=== PATIENT | female | born 1970 | race Caucasian/White ===

== ENCOUNTER → 2018-06-11 12:53 | Outpatient (CLI) | payer OTHER, MEDICAID, SELFPAY ==
--- NOTE | 2018-06-11 | DI.MG.S_ITS ---
BILATERAL DIGITAL DIAGNOSTIC MAMMOGRAM 3D/2D: 06/11/2018 CLINICAL: Baseline exam. Left breast and axillary palpable masses with pain. No prior exams were available for comparison. There are scattered fibroglandular elements in both breasts. There is a triangular marker overlying the skin of the upper outer left breast at anterior depth at the site of the patient's reported palpable and painful abnormality. There is no underlying mammographic abnormality. There are also no suspicious masses or abnormalities in the left axillary region on diagnostic mammography, at the site of the patient's second palpable, painful concern. No significant masses, calcifications, or other findings are seen in either breast. IMPRESSION: INCOMPLETE: NEEDS ADDITIONAL IMAGING EVALUATION No mammographic abnormalities to correlate with the site of the patient's reported focal palpable and painful abnormalities of the left axilla and upper outer left breast. Targeted diagnostic ultrasound recommended for further evaluation, which will be performed immediately following this exam. This exam was interpreted at Station ID: [id number]. NOTE: For mammograms, a report in lay terms will be sent to the patient. Approximately 15% of breast malignancies will not be visualized mammographically. In the management of a palpable breast mass, a negative mammogram must not discourage biopsy of a clinically suspicious lesion. Electronically Signed By: James Nieves M.D. ecl/:06/12/2018 00:33:33 letter sent: Additional Imaging Needed ACR BI-RADS Category 0: Incomplete 3340F
--- NOTE | 2018-06-11 | DI.US.S_ITS ---
ULTRASOUND OF LEFT BREAST: 06/11/2018 CLINICAL: Palpable left breast lump. Comparison is made to exam dated: 06/11/2018 mammogram - [facility]. Real-time and Doppler ultrasound of the left breast were performed. Trevino scale images of the real-time examination were reviewed. Targeted ultrasound was performed in the region of the patient's reported focal painful and palpable abnormalities in the upper outer left breast and left axilla. No underlying breast mass or abnormality is identified in the upper outer left breast location as indicated by the patient (approximately at the 2:00 position 8 cm from the nipple). Targeted ultrasound of the left axilla demonstrates a 1.7 x 1.4 x 1.3 cm oval circumscribed mass most consistent with a lymph node with diffuse cortical thickening and effacement of the fatty hilum. There is no vascularity in the mass on Doppler imaging. IMPRESSION: SUSPICIOUS OF MALIGNANCY - FOLLOW-UP RECOMMENDED 1) 1.7 cm mass in the left axilla at site of patient's palpable painful concern; this mass may represent an abnormal lymph node, is at intermediate suspicion for malignancy, and a targetd ultrasound biopsy is recommended. 2) Negative ultrasound evaluation of the area of the patient's reported focal painful abnormality in the upper outer left breast. Recommend clinical follow-up for further evaluation and management of the patient's reported symptoms. These results and recommendations were discussed with the patient at the time of the exam by [facility] radiologist Dr. Quoc Dumont in person. This exam was interpreted at Station ID: [id number]. Electronically Signed By: James Nieves M.D. ecl/:06/12/2018 00:38:38 letter sent: Biopsy Required Ultrasound BI-RADS: 4b Suspicious abnormality - intermediate suspicion of malignancy
== END ==
PROVIDERS: PCP Physician Assistant Medical; Visit Provider Internal Medicine Medical Oncology
DX: R92.8 Other abnormal and inconclusive findings on diagnostic imaging of breast (principal); N64.4 Mastodynia; N63.21 Unspecified lump in the left breast, upper outer quadrant; N63.32 Unspecified lump in axillary tail of the left breast
CPT/HCPCS: 76642; 77066; G0279

== ENCOUNTER → 2018-07-01 13:10 | Outpatient (CLI) | payer OTHER, MEDICAID, SELFPAY ==
--- NOTE | 2018-07-01 | DI.US.S_ITS ---
ULTRASOUND GUIDED BIOPSY LEFT BREAST WITH MARKING DEVICE INSERTED: 07/01/2018 CLINICAL: Left axillary node biopsy. PATIENT CONSENT: Risks (minor bleeding, infection, vasovagal reaction and repeat procedure), benefits and alternatives were explained to the patient and written informed consent was obtained. Correlation is made to exams dated: 06/11/2018 ultrasound and 06/11/2018 mammogram [facility]. An ultrasound guided biopsy using real-time ultrasound was performed for the oval lymph node located in the left axillary tail. The skin was prepped in the usual manner. Local anesthetic was administered to the access site. A skin steffanie was made in the breast. The abnormality was approached from the lateral aspect. An 18 gauge biopsy needle was placed adjacent to the abnormality under ultrasound guidance. Once the needle was documented to be in the correct location, four specimens were obtained using an automated biopsy gun. A clip was inserted into the biopsy cavity. Post procedure imaging demonstrates the location device at the targeted area. The specimens were sent to the laboratory for pathological analysis. IMPRESSION: ULTRASOUND GUIDED BIOPSY BENIGN Ultrasound guided biopsy of the lymph node in the left axillary tail was successful. Pathology indicates benign lymph node (LN). Pathology results are concordant with imaging findings. Return to annual mammogram screening schedule is recommended.(07/02/2019) This exam was interpreted at Station ID: [id number]. Danny salter,jan/:07/10/2018 09:13:21
--- NOTE | 2018-07-01 21:53 | PATH_ITS ---
[id number] Control ID: [id number] [facility] PATHOLOGY ONLY [address] [facility] [address] Patient Details KAREN CHAIDEZ DOB: 1970 Age(y/m/d): Gender: F SSN: Specimen Details Date collected: 07/01/20182152 Local Date received: 07/01/2018 Date entered: 07/01/2018 Date reported: 07/09/2018 1305 ET Physician Details Ordering: Harley ZIMMER Referring: ID: NPI: Additional Information: Clinical Info: [id number] Tests Ordered: Pathology Report Clinician Provided ICD Code(s) & Clinical History: Material Submitted: () LEFT AXILLARY LYMPH NODE Diagnosis: (01) Left Axillary Lymph Node, Biopsy: Minute fragments of lymphoid tissue without diagnostic abnormalities. Negative for granulomatous inflammation. Negative for carcinoma or lymphoproliferative disorder, see microscopic description. V/07/07/2018 Pathologist Provided ICD Code(s): (01) R59.0 CPT Codes: (01) 648112, Y95891, R92420 Microscopic Description: (01) Microscopic examination of the biopsy reveals small fragments of lymphoid tissue without morphologic evidence for metastatic carcinoma or lymphoma. In addition, there is no evidence for granulomatous inflammation. A panel of immunostains is performed for further evaluation, with the following findings: CD3 and CD20 show normal distribution of T and B lymphocytes, respectively. CD5 and CD43 label T lymphocytes (without aberrant B-cell coexpression). Cyclin-D1 shows no expression on the B lymphocytes. BCL2 labels T lymphocytes. BCL6 shows rare B-lymphocyte positivity, and the proliferation marker Ki-67 is very low. CANDICE ( panepithelial marker) is negative for metastatic carcinoma. On this very limited sample, there is no malignancy; however, if clinically there is suspicion for carcinoma, an excision is advised, and if there is suspicion for lymphoma, excision and fresh tissue for flow cytometry studies (in RPMI media) is recommended. * This test was developed and its performance characteristics determined by [employer]. It has not been cleared or approved by the U.S. Food and Drug Administration. The FDA has determined that such clearance or approval is not necessary. This test is used for clinical purposes. It should not be regarded as investigational or for research. Gross Description: (01) Received in one formalin-filled container labeled with the patient's name and designated left axillary lymph node, are multiple 0.1 cm in diameter, cylindrical-shaped portions of tissue which range in length from 0.1 cm to 1.0 cm. The specimen is entirely submitted in one cassette. ([id number]) /FRR Comments: (01) As part of ongoing quality process auditor, this case has also been reviewed by Dr. Jania Nguyen, who concurs with the diagnosis. ACC: [id number] PID: [id number] A duplicate report has been generated due to demographic updates. Electronically signed by () Megan Dunlap MD, Pathologist NPI- [id number]
== END ==
PROVIDERS: PCP Physician Assistant Medical; Visit Provider Internal Medicine Medical Oncology
DX: R22.2 Localized swelling, mass and lump, trunk (principal)
CPT/HCPCS: 38505; 76942; 88305; 88341; 88342

== ENCOUNTER → 2019-06-16 09:53 | Outpatient (CLI) | payer OTHER, MEDICAID, SELFPAY ==
--- NOTE | 2019-06-16 | DI.MG.S_ITS ---
BILATERAL DIGITAL SCREENING MAMMOGRAM 3D/2D WITH CAD: 06/16/2019 CLINICAL: Routine screening. Family history of breast cancer. Comparison is made to exam dated: 06/11/2018 mammogram - [facility]. The tissue of both breasts is predominantly fatty. Current study was also evaluated with a Computer Aided Detection (CAD) system. There is a biopsy clip in the left breast. No significant masses, calcifications, or other findings are seen in either breast. There has been no significant interval change. IMPRESSION: NEGATIVE There is no mammographic evidence of malignancy. A 1 year screening mammogram is recommended. This exam was interpreted at Station ID: [id number]. NOTE: For mammograms, a report in lay terms will be sent to the patient. Approximately 15% of breast malignancies will not be visualized mammographically. In the management of a palpable breast mass, a negative mammogram must not discourage biopsy of a clinically suspicious lesion. Electronically Signed By: Meliton singh/mata:06/16/2019 20:34:04 letter sent: Normal Exam ACR BI-RADS Category 1: Negative 3341F
== END ==
PROVIDERS: PCP Physician Assistant Medical; Visit Provider Nurse Practitioner Family
DX: Z12.31 Encounter for screening mammogram for malignant neoplasm of breast (principal); Z80.3 Family history of malignant neoplasm of breast
CPT/HCPCS: 77063; 77067

== ENCOUNTER → 2020-06-29 13:22 | Outpatient (CLI) | payer OTHER, MEDICAID, SELFPAY ==
--- NOTE | 2020-06-29 | DI.MG.S_ITS ---
BILATERAL DIGITAL SCREENING MAMMOGRAM 3D/2D WITH CAD: 06/29/2020 CLINICAL: Routine screening. Family history of breast cancer. Comparison is made to exams dated: 06/16/2019 mammogram and 06/11/2018 mammogram - [facility]. There are scattered fibroglandular elements in both breasts. Current study was also evaluated with a Computer Aided Detection (CAD) system. There is a biopsy clip in the left breast. No significant masses, calcifications, or other findings are seen in either breast. There has been no significant interval change. IMPRESSION: NEGATIVE There is no mammographic evidence of malignancy. A 1 year screening mammogram is recommended. This exam was interpreted at Station ID: [id number]. NOTE: For mammograms, a report in lay terms will be sent to the patient. Approximately 15% of breast malignancies will not be visualized mammographically. In the management of a palpable breast mass, a negative mammogram must not discourage biopsy of a clinically suspicious lesion. Electronically Signed By: Brant wilde/mata:06/29/2020 17:30:13 letter sent: Normal Exam ACR BI-RADS Category 1: Negative 3341F
== END ==
PROVIDERS: PCP Physician Assistant; Referring Provider Physician Assistant; Visit Provider Physician Assistant
DX: Z12.31 Encounter for screening mammogram for malignant neoplasm of breast (principal); Z80.3 Family history of malignant neoplasm of breast
CPT/HCPCS: 77063; 77067

== ENCOUNTER → 2021-07-11 14:51 | Outpatient (CLI) | payer OTHER, MEDICAID, SELFPAY ==
--- NOTE | 2021-07-11 | DI.MG.S_ITS ---
BILATERAL DIGITAL SCREENING MAMMOGRAM 3D/2D WITH CAD: 07/11/2021 CLINICAL: Routine screening. Family history of breast cancer. Comparison is made to exams dated: 06/29/2020 mammogram, 06/16/2019 mammogram, and 07/01/2018 ultrasound [facility]. There are scattered fibroglandular elements in both breasts. Current study was also evaluated with a Computer Aided Detection (CAD) system. There are benign calcifications in both breasts. No significant masses, calcifications, or other findings are seen in either breast. There has been no significant interval change. IMPRESSION: BENIGN There is no mammographic evidence of malignancy. A 1 year screening mammogram is recommended. This exam was interpreted at Station ID: [id number]. NOTE: For mammograms, a report in lay terms will be sent to the patient. Approximately 15% of breast malignancies will not be visualized mammographically. In the management of a palpable breast mass, a negative mammogram must not discourage biopsy of a clinically suspicious lesion. Electronically Signed By: Maximilian Arevalo acr/mata:07/11/2021 15:26:34 letter sent: Normal Exam ACR BI-RADS Category 2: Benign Finding(s) 3342F
== END ==
PROVIDERS: PCP Family Medicine; Referring Provider Family Medicine; Visit Provider Family Medicine
DX: Z12.31 Encounter for screening mammogram for malignant neoplasm of breast (principal)
CPT/HCPCS: 77063; 77067

== ENCOUNTER 2021-10-22 15:48 | Emergency (ER) | payer OTHER, MEDICAID, SELFPAY ==
[2021-10-22 15:55] VITALS: BP 167/83; PULSE 81; RESP 22; TEMP 36.5; O2SAT 97
--- NOTE | 2021-10-22 17:47 | DI.RAD.S_ITS ---
PROCEDURE: XR CHEST 2V INDICATIONS: cough, fatigue x 2 weeks TECHNIQUE: 2 views of the chest were acquired. COMPARISON: None. FINDINGS: Surgical changes and devices: None. Lungs and pleura: Lungs are clear. No pleural effusions or pneumothorax. Mediastinum: Mediastinal contours are normal. Heart size is normal. Bones and chest wall: No suspicious bony abnormalities. Soft tissues appear unremarkable. IMPRESSION: No acute cardiopulmonary process demonstrated radiographically. Dictated by: Marcos Brothers M.D. on 10/22/2021 at 17:07 Approved by: Marcos Brothers M.D. on 10/22/2021 at 17:07
[2021-10-22 18:34] LABS: COVID19 -Nasal RAPID Negative (Negative)
--- NOTE | 2021-10-22 18:55 | ED_ITS ---
HPI - General Adult General Chief complaint: Upper Respiratory Symptoms Stated complaint: Cough/Hurts to Breathe/Not Sleeping or Eating Time Seen by Provider: 10/22/21 18:47 Source: patient Mode of arrival: Ambulatory History of Present Illness HPI narrative: Patient is a 50-year-old female here for evaluation of approximately 2 weeks of a cough, some discomfort when she takes a deep breath, not sleeping very well nor eating very well. She states she had symptoms a couple weeks ago things seemed to improve but now has returned. No fevers. She is unvaccinated against COVID-19. Related Data Allergies Allergy/AdvReac Type Severity Reaction Status Date / Time Penicillins Allergy Verified 10/22/21 15:57 Review of Systems Constitutional Constitutional: Reports fatigue and Denies fever(s) ENT Ears, Nose, Mouth, and Throat: Reports system reviewed and no additional complaints, except as documented Cardiovascular Cardiovascular: Reports as per HPI and Reports system reviewed and no additional complaints, except as documented Respiratory Respiratory: Reports as per HPI and Reports system reviewed and no additional complaints, except as documented Gastrointestinal Gastrointestinal: Reports as per HPI and Reports system reviewed and no additional complaints, except as documented Integumentary/Breasts Skin/Breast: Reports system reviewed and no additional complaints, except as documented Endocrine Endocrine: Reports fatigue Hematologic/Lymphatic On Anticoagulants: No Patient History Social History lives independently: Yes Exam Initial Vital Signs Initial Vital Signs: Vital Signs Temperature 97.7 F 10/22/21 15:55 Pulse Rate 81 10/22/21 15:55 Respiratory Rate 22 10/22/21 15:55 Blood Pressure 167/83 H 10/22/21 15:55 Pulse Oximetry 97 10/22/21 15:55 HENMT Head: normal to inspection and normocephalic Resp Effort & Inspection: normal respiratory effort Auscultation: crackles Cardio Rate: regular rate Rhythm: regular rhythm Skin General: no rashes or lesions noted Neuro General: patient alert, patient awake, patient oriented x3 and moves all extremities Extrem General: normal to inspection and capillary refill normal Psych Appearance: grossly normal and well kempt Course Orders Ordered: ED Orders 10/22/21 17:47 XR chest 2V Stat 10/22/21 18:15 COVID19 -Nasal swab/Pre-Proc Stat Vital Signs Vital signs: Vital Signs - 8 hr 10/22/21 15:55 Temperature 97.7 F Pulse Rate 81 Respiratory Rate 22 Blood Pressure 167/83 H Pulse Oximetry 97 Medical Decision Making Lab Data Labs: Lab Results 10/22/21 Range/Units 18:15 SARS-CoV-2 (PCR) Negative (Negative) Imaging Data Chest x-ray: Radiologist's Impression: [address] [address] XRay Report Signed Patient: Kika Chavez MR#: [id number] : 1970 Acct:[id number] Age/Sex: 50 / F Date of Service: 10/22/21 Loc: ED Accession Number: [id number] ?? Procedure: XR chest 2V Ordering Provider: Bere Sorto D.O. PROCEDURE:? XR CHEST 2V ? INDICATIONS:? cough, fatigue x 2 weeks ? TECHNIQUE:? 2 views of the chest were acquired.? ? COMPARISON:? None. ? FINDINGS:? ? Surgical changes and devices:? None.? ? Lungs and pleura:? Lungs are clear.? No pleural effusions or pneumothorax.? ? Mediastinum:? Mediastinal contours are normal.? Heart size is normal.? ? Bones and chest wall:? No suspicious bony abnormalities.? Soft tissues appear unremarkable.? ? IMPRESSION:? No acute cardiopulmonary process demonstrated radiographically. ? ? Dictated by: Marcos Brothers M.D. on 10/22/2021 at 17:07 ? ? Approved by: Marcos Brothers M.D. on 10/22/2021 at 17:07? MDM Narrative Medical decision making narrative: No respiratory distress. No fevers. Chest x-ray is unremarkable. COVID is negative. No indication for antibiotics. I did discuss this with the patient. I do suspect viral upper respiratory infection. She was given return precautions. She expressed understanding and agreement. Discharge Plan Departure Patient Disposition: Home Clinical Impression: Upper respiratory infection, Cough Instructions: Cough Activity Restrictions/Additional Instructions: You can try ruuk-ozi-caswuav cough medications. You can also take Tylenol for any fevers or body aches. Be sure that your washing her hands frequently and wearing a mask. Contact your primary doctor for a follow-up. Return to the emergency department for any new or worsening symptoms. Referrals: Sang Leblanc DO [Primary Care Provider] -
== END 2021-10-22 19:01 | disposition home or self-care (01) ==
PROVIDERS: Emergency Medicine; Emergency Provider Emergency Medicine; PCP Family Medicine
DX: J06.9 Acute upper respiratory infection, unspecified (principal); R05.9 Cough, unspecified; Z20.822 Contact with and (suspected) exposure to COVID-19
CPT/HCPCS: 71046; 87635; 99283; C9803

== ENCOUNTER 2021-11-11 09:24 | Emergency (ER) | payer OTHER, MEDICAID, SELFPAY ==
[2021-11-11] VITALS (8 sets, daily range): BP systolic 137–177; BP diastolic 85–117; PULSE 70–90; RESP 18–40; TEMP 36.7; O2SAT 93–100; BMI 34.7
--- NOTE | 2021-11-11 09:39 | DI.RAD.S_ITS ---
PROCEDURE: XR RIBS LT MIN 3V W CXR1V INDICATIONS: Fall on , left sided rib pain TECHNIQUE: 2 views of the left ribs were acquired, along with a single view chest. COMPARISON: None. FINDINGS: Surgical changes and devices: None. Bones and chest wall: No fractures or dislocations. No suspicious bony lesions. Overlying soft tissues appear unremarkable. Lungs and pleura: No pleural effusions or pneumothorax. Lungs appear clear. Mediastinum: Mediastinal contours appear normal. Heart size is normal. IMPRESSION: No acute cardiopulmonary findings Approved by: Thien Mitchell M.D. on 11/11/2021 at 10:40
--- NOTE | 2021-11-11 09:44 | ED_ITS ---
HPI - Fall General Chief Complaint: Fall Stated Complaint: covid+fell lt. rib pain/hard to breathe Time Seen by Provider: 11/11/21 09:32 Source: patient Mode of arrival: Ambulatory History of Present Illness HPI Narrative: 50-year-old woman with a history of eosinophilic granulomatosis with polyangiitis on immune modulating medications for this, hypertension, diabetes, hyperlipidemia was diagnosed with COVID on November 06 ( unvaccinated) with sore throat nausea, vomiting, diarrhea, mild cough, low-grade fevers, was doing well until she stumbled over her cat and landed with the brunt of the force the left midclavicular line just under her breast. Complaining of severe pain secondary to the fall that is limiting overall breathing. She has been otherwise afebrile with oxygen saturations at 98% on room air. Related Data Previous Rx's Medication Instructions Recorded oxycodone-acetaminophen 5 mg-325 1 tab PO Q6H PRN #20 tab 11/11/21 mg tablet Allergies Allergy/AdvReac Type Severity Reaction Status Date / Time Penicillins Allergy Verified 11/11/21 09:43 Review of Systems Review of Systems Narrative: Remainder of complete review of systems is otherwise unremarkable except for that included in the HPI. Patient History Social History lives independently: Yes Smoking Status: Never smoker Smoking Status: Never smoker Substance Use Type: does not use Exam Initial Vital Signs Initial Vital Signs: Vital Signs Temperature 98.0 F 11/11/21 09:30 Pulse Rate 81 11/11/21 09:30 Respiratory Rate 22 11/11/21 09:30 Blood Pressure 172/111 H 11/11/21 09:30 Pulse Oximetry 98 11/11/21 09:30 General: Chronically ill-appearing in obvious pain as well as emotional distress. Able to give a complete and coherent history. HEENT: Moist mucous membranes, normal sclera with reactive pupils, cushingoid face ease Neck: No JVD, supple Respiratory: Lungs are clear to auscultation, no wheezing no rales no rhonchi. Full and symmetrical air movement Cardiac: Regular rate and rhythm no murmurs no bruits Abdomen: Soft, nontender, good bowel tones, no flank pain Skin: Warm and dry, copper discoloration over multiple extensor surfaces Neurologic: Grossly neurologically intact with no obvious asymmetries or abnormalities Extremities: No trauma, well perfused Psych: Cooperative, appropriate insight and affect Course Orders Ordered: ED Orders 11/11/21 09:39 XR ribs LT min 3V w CXR1V Stat 11/11/21 10:23 Complete Blood Count AUTO DIFF Stat Comprehensive Metabolic Panel Stat D Dimer Stat Troponin I Stat Hydromorphone HCl (Hydromorphone 0.5 Mg Inj) 0.5 mg IV Q15MIN PRN PRN Reason: Pain, Last Admin: 11/11/21 10:35 Dose: 0.5 mg Documented by: YULIYA Discontinued Medications Sodium Chloride (Normal Saline 0.9%) 1,000 mls @ 1,000 mls/hr IV BOLUS ONE Stop: 11/11/21 10:49 Last Admin: 11/11/21 10:35 Dose: 1,000 mls/hr Documented by: YULIYA Ketorolac Tromethamine (Ketorolac 30 Mg/Ml Vial) 15 mg IV NOW ONE Stop: 11/11/21 09:51 Last Admin: 11/11/21 10:34 Dose: 15 mg Documented by: YULIYA Lisinopril (Lisinopril 20 Mg Tablet) 20 mg PO NOW ONE Stop: 11/11/21 09:52 Last Admin: 11/11/21 10:35 Dose: 20 mg Documented by: YULIYA Oxycodone/Acetaminophen (Oxycodone/Acetaminophen 5/325 Tablet) 1 tab PO NOW ONE Stop: 11/11/21 11:13 Last Admin: 11/11/21 11:17 Dose: 1 tab Documented by: YULIYA Vital Signs Vital signs: Vital Signs - 8 hr 11/11/21 09:30 11/11/21 09:36 11/11/21 10:01 Temperature 98.0 F Pulse Rate 81 81 81 Respiratory Rate 22 23 Blood Pressure 172/111 H Pulse Oximetry 98 100 97 11/11/21 10:30 11/11/21 10:42 11/11/21 11:00 Temperature Pulse Rate 78 90 74 Respiratory Rate 40 H 31 H 18 Blood Pressure 177/117 H 137/87 Pulse Oximetry 98 95 93 MDM - Fall Lab Data Result diagrams: 11/11/21 10:23 11/11/21 10:23 Labs: Lab Results 11/11/21 11/11/21 11/11/21 Range/Units 10:23 10:23 10:23 WBC 3.1 L (4.5-11.0) X10^3/uL RBC 4.08 (4.0-5.2) X10^6/uL Hgb 13.3 (12.0-16.0) g/dL Hct 38.2 (36-46) % MCV 93.6 (80-100) fL MCH 32.6 (26-34) PG MCHC 34.8 (30-36) % RDW 14.1 (11.6-14.8) % Plt Count 135 L (150-400) X10^3/uL Neut % (Auto) 47.8 L (50-75) % Lymph % (Auto) 36.0 (25-40) % [place] % (Auto) 13.7 (3-14) % Eos % (Auto) 1.6 L (2-4) % Baso % (Auto) 0.9 (0-2) % Neut # (Auto) 1500 (9550-1244) /uL Lymph # (Auto) 1100 (1452-0174) /uL [place] # (Auto) 400 (0-900) /uL Eos # (Auto) 100 (0-450) /uL Baso # (Auto) 0 (0-100) /uL D-Dimer < 200 (<230) ng/mL Sodium 136 L (137-145) mmol/L Potassium 4.5 (3.4-5.1) mmol/L Chloride 108 H (98-107) mmol/L Carbon Dioxide 23 (22-32) mmol/L BUN 16 (7-17) mg/dL Creatinine 0.70 (0.52-1.04) mg/dL Estimated GFR > 60.0 (>60) mL/min BUN/Creatinine Ratio 22.9 H (6-22) Glucose 207 H (70-100) mg/dL Calcium 9.0 (8.4-10.2) mg/dL Total Bilirubin 0.5 (0.2-1.3) mg/dL AST 32 (14-36) IU/L ALT 30 (<35) IU/L Alkaline Phosphatase 77 (38-126) U/L Troponin I < 0.012 (0.01-0.034) ng/mL Total Protein 6.9 (6.3-8.2) g/dL Albumin 4.1 (3.5-5.0) g/dL Globulin 2.8 (1.7-4.1) g/dL Albumin/Globulin Ratio 1.5 (1.0-2.8) Imaging Data Chest x-ray: Radiologist's Impression: FINDINGS:? ? Surgical changes and devices:? None.? ? Bones and chest wall:? No fractures or dislocations.? No suspicious bony lesions.? Overlying soft tissues appear unremarkable.? ? Lungs and pleura:? No pleural effusions or pneumothorax.? Lungs appear clear.? ? Mediastinum:? Mediastinal contours appear normal.? Heart size is normal.? ? IMPRESSION:? No acute cardiopulmonary findings ? ? ? Approved by: Thien Mitchell M.D. on 11/11/2021 at 10:40? [facility] Narrative Medical decision making narrative: 50-year-old woman with autoimmune disease on day 7 of symptoms with a mechanical fall on day 6 and severe left anterior rib pain. No hemopneumothorax is appreciated. No obvious fracture is seen but the imaging is somewhat suboptimal. Treatment regardless of will fracture or bone bruise is going to be the same with rest and pain control. There is no evidence for acute coronary syndrome, consolidated pneumonia or alternate explanation for her severe rib pain. 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 Given her rib contusion as well will recommend that she not return to work until November 16. Will give her a brief prescription of Percocet to use for rib pain. Remainder of workup today is reassuring and there is no indication for hospitalization at this time. Blood pressure has come down nicely with her typical lisinopril dose and appropriate pain control. She is safe for home discharge Discharge Plan Departure Patient Disposition: Home Clinical Impression: Contusion of rib on left side, COVID-19 Instructions: DI for Rib Contusion, DI for COVID-19 (Suspected or Confirmed ) Activity Restrictions/Additional Instructions: Thank you for coming in today Your lab work was very reassuring. It does look like you are getting over COVID without any significant complications. You did bruise your ribs severely but it does not look like it is completely broken. You certainly did not cause any damage to your lungs or collapse a lung. There is no evidence of heart attack or alternative explanation for your pain. You can use 1-2 Percocet for severe pain. Typically rib injuries are going to take 6 weeks to heal completely. It is important that you continue to take big breaths and remain active. If you find that you are getting worse please return to the emergency department Prescriptions: New oxycodone-acetaminophen 5-325 mg tablet 1 tab PO Q6H PRN (Reason: pain) Qty: 20 0RF Referrals: Sang Leblanc DO [Primary Care Provider] -
[2021-11-11] MEDS: KETOROLAC 30 MG/ML VIAL 15 MG IV (10:34)
[2021-11-11] MEDS: lisinopriL 20 MG TABLET PO (10:35)
[2021-11-11] MEDS: SODIUM CHLORIDE 0.9% 1,000 ML 1000 ML IV (10:35)
[2021-11-11] MEDS: HYDROMORPHONE 0.5 MG INJ IV (10:35)
[2021-11-11 10:41] LABS: Add Manual Diff / Slide Review NO; Basophils Absolute Auto 0 /uL (0-100); Basophils Percent Auto 0.9 % (0-2); Eosinophils Absolute Auto 100 /uL (0-450); Eosinophils Percent Auto 1.6 % (2-4); Hematocrit 38.2 % (36-46); Hemoglobin 13.3 g/dL (12.0-16.0); Lymphocytes Absolute Auto 1100 /uL (1100-4500); Mean Corpuscular HGB Conc 34.8 % (30-36); Mean Corpuscular Hemoglobin 32.6 PG (26-34); Mean Corpuscular Volume 93.6 fL (80-100); Monocytes Absolute Auto 400 /uL (0-900); Monocytes Percent Auto 13.7 % (3-14); Neutrophils Absolute Auto 1500 /uL (1500-7000); Neutrophils Percent Auto 47.8 % (50-75); Platelet Count 135 X10^3/uL (150-400); Red Blood Cell Count 4.08 X10^6/uL (4.0-5.2); Red Cell Distribution Width 14.1 % (11.6-14.8); White Blood Cell Count 3.1 X10^3/uL (4.5-11.0)
[2021-11-11 10:49] LABS: D Dimer < 200 ng/mL (<230)
[2021-11-11 10:50] LABS: Alanine Aminotransferase 30 IU/L (<35); Albumin 4.1 g/dL (3.5-5.0); Albumin Globulin Ratio 1.5 (1.0-2.8); Alkaline Phosphatase 77 U/L (38-126); Aspartate Aminotransferase 32 IU/L (14-36); BUN Creatinine Ratio 22.9 (6-22); Bilirubin Total 0.5 mg/dL (0.2-1.3); Blood Urea Nitrogen 16 mg/dL (7-17); Carbon Dioxide 23 mmol/L (22-32); Chloride 108 mmol/L (98-107); Estimated Glomerular Filt Rate > 60.0 mL/min (>60); Globulin 2.8 g/dL (1.7-4.1); Glucose 207 mg/dL (70-100); HEMOLYSIS < 15 (0-50); Potassium 4.5 mmol/L (3.4-5.1); Sodium 136 mmol/L (137-145); Total Protein 6.9 g/dL (6.3-8.2)
[2021-11-11 11:02] LABS: Troponin I < 0.012 ng/mL (0.01-0.034)
[2021-11-11] MEDS: OXYCODONE/ACETAMINOPHEN 5/325 TABLET 1 TAB PO (11:17)
== END 2021-11-11 12:02 | disposition home or self-care (01) ==
PROVIDERS: Emergency Provider Emergency Medicine; PCP Family Medicine
DX: U07.1 COVID-19 (principal); S20.212A Contusion of left front wall of thorax, initial encounter; W22.8XXA Striking against or struck by other objects, initial encounter
CPT/HCPCS: 36415; 71101; 80053; 84484; 85025; 85379; 96361; 96374; 96375; 99284; J1170; J1885

== ENCOUNTER 2022-04-22 07:33 | Emergency (ER) | payer OTHER, MEDICAID, SELFPAY ==
[2022-04-22 07:35] VITALS: BP 144/84; PULSE 85; RESP 18; TEMP 36.6; O2SAT 99; BMI 33.8
[2022-04-22 08:07] LABS: Add Manual Diff / Slide Review NO; Basophils Absolute Auto 100 /uL (0-100); Basophils Percent Auto 0.7 % (0-2); Eosinophils Absolute Auto 100 /uL (0-450); Eosinophils Percent Auto 0.9 % (2-4); Hematocrit 37.4 % (36-46); Hemoglobin 13.2 g/dL (12.0-16.0); Lymphocytes Absolute Auto 1600 /uL (1100-4500); Lymphocytes Percent Auto 19.3 % (25-40); Mean Corpuscular HGB Conc 35.2 % (30-36); Monocytes Absolute Auto 700 /uL (0-900); Neutrophils Absolute Auto 5700 /uL (1500-7000); Neutrophils Percent Auto 70.1 % (50-75); Platelet Count 179 X10^3/uL (150-400); Red Blood Cell Count 4.11 X10^6/uL (4.0-5.2); Red Cell Distribution Width 14.6 % (11.6-14.8); White Blood Cell Count 8.2 X10^3/uL (4.5-11.0)
[2022-04-22 08:13] LABS: Alanine Aminotransferase 22 IU/L (<35); Albumin 4.8 g/dL (3.5-5.0); Albumin Globulin Ratio 1.6 (1.0-2.8); Alkaline Phosphatase 62 U/L (38-126); Aspartate Aminotransferase 22 IU/L (14-36); BUN Creatinine Ratio 32.4 (6-22); Bilirubin Total 0.9 mg/dL (0.2-1.3); Blood Urea Nitrogen 23 mg/dL (7-17); Calcium 9.3 mg/dL (8.4-10.2); Carbon Dioxide 24 mmol/L (22-32); Chloride 105 mmol/L (98-107); Estimated Glomerular Filt Rate > 60 mL/min (>60); Glucose 168 mg/dL (70-100); HEMOLYSIS < 15 (0-50); Lipase 141 U/L (23-300); Potassium 4.4 mmol/L (3.4-5.1); Sodium 140 mmol/L (137-145); Total Protein 7.8 g/dL (6.3-8.2)
--- NOTE | 2022-04-22 08:22 | ED_ITS ---
HPI - Abdominal Pain General Chief Complaint: Abdominal Pain Stated Complaint: Thinks diverticulitis attack Time Seen by Provider: 04/22/22 07:43 Source: patient and family Mode of arrival: Ambulatory History of Present Illness HPI narrative: Patient is a 51-year-old female history of eosinophilic fasciitis, fibromyalgia and diverticulitis presenting with what she thinks is a diverticulitis flare. It has been ongoing for last 5 days. She said the 1st few days was sort of annoying but now it is quite painful and hurts to move. She has not had fever or chills. It is in 1 particular spot the same spot she always gets diverticulitis. She has not had any bloody stools. She takes tramadol daily for her other issues and is not helping. Related Data Previous Rx's Medication Instructions Recorded oxycodone-acetaminophen 5 mg-325 1 tab PO Q6H PRN pain #20 tabs 11/11/21 mg tablet ciprofloxacin HCl 500 mg tablet 500 mg PO BID #14 tabs 04/22/22 (Cipro) hydrocodone 5 mg-acetaminophen 325 1 tab PO Q6H PRN pain #10 tabs 04/22/22 mg tablet metronidazole 500 mg tablet 500 mg PO Q8H 7 days #21 tabs 04/22/22 ondansetron 4 mg disintegrating 4 mg PO Q8H PRN nausea and 04/22/22 tablet vomiting #10 tabs Allergies Allergy/AdvReac Type Severity Reaction Status Date / Time Penicillins Allergy Verified 11/11/21 09:43 Review of Systems Review of Systems Narrative: GENERAL: Denies chills, fatigue, malaise, fever, sweats, travel HEENT: Denies sinus pain, ear pain, sore throat, difficulty swallowing, neck pain RESPIRATORY: Denies dyspnea, cough, wheezing, hemoptysis, sputum. CARDIOVASCULAR: Denies chest pain, palpitations, orthopnea, edema GASTROINTESTINAL: See HPI : Denies dysuria, frequency, incontinence, hematuria, urinary retention, flank pain. MUSCULOSKELETAL: Denies weakness, joint pain, or bony pain SKIN: No rash, no erythema, no pruritus NEUROLOGIC: Denies weakness, dizziness, headache, numbness, change in speech, confusion PSYCHIATRIC: No concerning psychosocial issues. 12 point review of systems is negative except for those stated above and HPI Patient History Social History lives independently: Yes Smoking Status: Never smoker Smoking Status: Never smoker alcohol intake frequency: 0-2 drinks per day Substance Use Type: does not use Exam Initial Vital Signs Initial Vital Signs: Vital Signs Temperature 97.9 F 04/22/22 07:35 Pulse Rate 85 04/22/22 07:35 Respiratory Rate 18 04/22/22 07:35 Blood Pressure 144/84 H 04/22/22 07:35 Pulse Oximetry 99 04/22/22 07:35 Oxygen Delivery Method 04/22/22 07:35 GENERAL: Alert pleasant 40 appears and in [no acute] distress. HEENT: Head atraumatic,EOMI, pupils reactive, face symmetric, [moist] mucous membranes CARDIOVASCULAR: Regular rate and rhythm without murmurs, rubs or gallops. RESPIRATORY: Breath sounds equal bilaterally, no wheezes rales or rhonchi. ABDOMEN: Soft, tender left lower quadrant over : No CVA tenderness EXTREMITIES: Normal range of motion, no clubbing or edema. Neurovascularly intact NEUROLOGICAL: Alert and oriented x4 SKIN: Warm, dry, no laceration, no petechiae, no rashes or lesions. Course Orders Ordered: Discontinued Medications Morphine Sulfate (Morphine 4 Mg/Ml Inj) 4 mg IV NOW ONE Stop: 04/22/22 08:24 Last Admin: 04/22/22 08:31 Dose: 4 mg Documented By: HEIDY Ondansetron HCl (Ondansetron 4 Mg/2 Ml Inj) 4 mg IV NOW ONE Stop: 04/22/22 08:24 Last Admin: 04/22/22 08:31 Dose: 4 mg Documented By: HEIDY Vital Signs Vital signs: Vital Signs - 8 hr 04/22/22 07:35 Temperature 97.9 F Pulse Rate 85 Respiratory Rate 18 Blood Pressure 144/84 H Pulse Oximetry 99 Oxygen Delivery Method Room Air MDM - Abdominal Pain Lab Data Result diagrams: 04/22/22 07:45 04/22/22 07:45 Labs: Lab Results 04/22/22 04/22/22 04/22/22 Range/Units 07:45 07:45 08:24 WBC 8.2 (4.5-11.0) X10^3/uL RBC 4.11 (4.0-5.2) X10^6/uL Hgb 13.2 (12.0-16.0) g/dL Hct 37.4 (36-46) % MCV 91.0 (80-100) fL MCH 32.0 (26-34) PG MCHC 35.2 (30-36) % RDW 14.6 (11.6-14.8) % Plt Count 179 (150-400) X10^3/uL Neut % (Auto) 70.1 (50-75) % Lymph % (Auto) 19.3 L (25-40) % [place] % (Auto) 9.0 (3-14) % Eos % (Auto) 0.9 L (2-4) % Baso % (Auto) 0.7 (0-2) % Neut # (Auto) 5700 (7396-1466) /uL Lymph # (Auto) 1600 (6707-2661) /uL [place] # (Auto) 700 (0-900) /uL Eos # (Auto) 100 (0-450) /uL Baso # (Auto) 100 (0-100) /uL Sodium 140 (137-145) mmol/L Potassium 4.4 (3.4-5.1) mmol/L Chloride 105 (98-107) mmol/L Carbon Dioxide 24 (22-32) mmol/L BUN 23 H (7-17) mg/dL Creatinine 0.71 (0.52-1.04) mg/dL Estimated GFR > 60 (>60) mL/min BUN/Creatinine Ratio 32.4 H (6-22) Glucose 168 H (70-100) mg/dL Calcium 9.3 (8.4-10.2) mg/dL Total Bilirubin 0.9 (0.2-1.3) mg/dL AST 22 (14-36) IU/L ALT 22 (<35) IU/L Alkaline Phosphatase 62 (38-126) U/L Total Protein 7.8 (6.3-8.2) g/dL Albumin 4.8 (3.5-5.0) g/dL Globulin 3.0 (1.7-4.1) g/dL Albumin/Globulin Ratio 1.6 (1.0-2.8) Lipase 141 (23-300) U/L Urine Color Yellow Urine Appearance Clear Urine pH 5.5 (4.5-8.0) Ur Specific [employer] 1.025 (1.000-1.035) Urine Protein 2+ H (Negative) Urine Glucose (UA) Negative (Negative) g/dL Urine Ketones Negative (NEGATIVE) Urine Occult Blood 1+ H (Negative) Urine Nitrate Negative (Negative) Urine Bilirubin Negative (NEGATIVE) Urine Urobilinogen 0.2 (0.2) E.U./dL Ur Leukocyte Esterase Negative (NEGATIVE) Urine RBC 1-5/hpf (0-5/HPF) Urine WBC None seen (0-5/HPF) Urine Bacteria None seen (None) Hyaline Casts 1-5/lpf (None) Ur Culture Indicated? Cult not indicated Imaging Data CT scan - abdomen/pelvis: Radiologist's Impression: [address] [address] [address] Scan Report Signed Patient: Kika Chavez MR#: [id number] : 1970 Acct:[id number] Age/Sex: 51 / F Date of Service: 04/22/22 Loc: ED Accession Number: [id number] ?? Procedure: CT abdomen pelvis wo con Ordering Provider: Sue Sanabria D.O. PROCEDURE:? CT ABDOMEN PELVIS WO CON ? INDICATIONS:? left lower quad pain hx diverticulitis ? TECHNIQUE:? Noncontrast 5 mm thick sections acquired from the diaphragms to the symphysis.? 5 mm coronal and sagittal reformats were then performed.? For radiation dose reduction, the following was used:? automated exposure control, adjustment of mA and/or kV according to patient size.? ? COMPARISON:? None. ? FINDINGS:? Image quality:? Excellent.? ? ABDOMEN:? Lung bases:? Lung bases are clear.? Heart size is normal.? ? Solid organs:? Liver is diffusely hypodense suggesting fatty infiltration.? Gallbladder is surgically absent .? Pancreas is normal in contours.? Spleen is normal in size.? No adrenal nodules.? Kidneys are normal in size, without hydronephrosis or nephrolithiasis.? ? ? Peritoneum and bowel:? Unenhanced bowel loops demonstrate overall normal wall thickness and caliber.? There are scattered diverticular outpouchings throughout the sigmoid colon. ?Focal mucosal thickening and pericolonic fat stranding is present within the upper sigmoid colon.? No discrete pericolonic fluid collections.? No pneumoperitoneum.? The appendix is thin walled. ? Nodes and vessels:? No retroperitoneal or mesenteric adenopathy by size criteria.? Aorta and inferior vena cava are normal in caliber.? ? Miscellaneous:? No ventral hernias.? ? ? PELVIS:? Genitourinary:? Bladder wall thickness is normal.? ? Miscellaneous:? No inguinal hernias or adenopathy.? ? Bones:? No suspicious bony lesions.? No vertebral body compression fractures.? ? IMPRESSION:? ? 1. Acute non perforated diverticulitis. ? 2. No other acute intra-abdominal findings.? Normal appendix.? ? ? Dictated by: Mily Márquez M.D. on 04/22/2022 at 9:10 ? ? MDM Narrative Medical decision making narrative: Patient has history of diverticulitis. She has signs and symptoms consistent with diverticular with for by CT. Blood work is overall reassuring no significant leukocytosis. She be treated as outpatient with Cipro and Flagyl. Discharge Plan Departure Patient Disposition: Home Clinical Impression: Diverticulitis Instructions: DI for Diverticulitis Activity Restrictions/Additional Instructions: *You have been diagnosed with diverticulitis *What to do: At this time blood work is overall reassuring, recommend clear liquid diet for the 1st few days and then increase diet as tolerated *Continue to take medications as directed Cipro 500 mg twice a day for 7 days Flagyl 500 mg 3 times a day for 7 days *Follow up with your primary care provider in 2-3 days or call [phone] *Return to ER if you should have increased abdominal pain, fever, bloody stool or any new, worsening or concerning symptoms Prescriptions: New hydrocodone-acetaminophen 5-325 mg tablet 1 tab PO Q6H PRN (Reason: pain) Qty: 10 0RF metronidazole 500 mg tablet 500 mg PO Q8H 7 Days Qty: 21 0RF ciprofloxacin HCl [Cipro] 500 mg tablet 500 mg PO BID Qty: 14 0RF ondansetron 4 mg tablet,disintegrating 4 mg PO Q8H PRN (Reason: nausea and vomiting) Qty: 10 0RF No Action oxycodone-acetaminophen 5-325 mg tablet 1 tab PO Q6H PRN (Reason: pain) Qty: 20 0RF Referrals: Sang Leblanc DO [Primary Care Provider] - Visit Report Forms: Patient Portal/API
--- NOTE | 2022-04-22 08:22 | DI.CT.S_ITS ---
PROCEDURE: CT ABDOMEN PELVIS WO CON INDICATIONS: left lower quad pain hx diverticulitis TECHNIQUE: Noncontrast 5 mm thick sections acquired from the diaphragms to the symphysis. 5 mm coronal and sagittal reformats were then performed. For radiation dose reduction, the following was used: automated exposure control, adjustment of mA and/or kV according to patient size. COMPARISON: None. FINDINGS: Image quality: Excellent. ABDOMEN: Lung bases: Lung bases are clear. Heart size is normal. Solid organs: Liver is diffusely hypodense suggesting fatty infiltration. Gallbladder is surgically absent . Pancreas is normal in contours. Spleen is normal in size. No adrenal nodules. Kidneys are normal in size, without hydronephrosis or nephrolithiasis. Peritoneum and bowel: Unenhanced bowel loops demonstrate overall normal wall thickness and caliber. There are scattered diverticular outpouchings throughout the sigmoid colon. Focal mucosal thickening and pericolonic fat stranding is present within the upper sigmoid colon. No discrete pericolonic fluid collections. No pneumoperitoneum. The appendix is thin walled. Nodes and vessels: No retroperitoneal or mesenteric adenopathy by size criteria. Aorta and inferior vena cava are normal in caliber. Miscellaneous: No ventral hernias. PELVIS: Genitourinary: Bladder wall thickness is normal. Miscellaneous: No inguinal hernias or adenopathy. Bones: No suspicious bony lesions. No vertebral body compression fractures. IMPRESSION: 1. Acute non perforated diverticulitis. 2. No other acute intra-abdominal findings. Normal appendix. Dictated by: Mily Márquez M.D. on 04/22/2022 at 9:10 Approved by: Mily Márquez M.D. on 04/22/2022 at 9:12
[2022-04-22 08:26] LABS: Appearance Urine UA CLEAR; Bilirubin Urine UA NEGATIVE (NEGATIVE); Color Urine UA YELLOW; Glucose Urine UA NEGATIVE (Negative); Ketones Urine UA NEGATIVE (NEGATIVE); Leukocyte Esterase Urine UA NEGATIVE (NEGATIVE); Nitrite Urine UA NEGATIVE (Negative); Occult Blood Urine UA 1+ (Negative); Protein Urine UA 2+ (Negative); Specific Gravity Urine UA 1.025 (1.000-1.035); Urobilinogen Urine UA 0.2 E.U./dL (0.2)
[2022-04-22 08:30] LABS: pH Urine UA 5.5 (4.5-8.0)
[2022-04-22 08:31] LABS: RBC Urine 1-5/HPF (0-5/HPF); WBC Urine None Seen (0-5/HPF)
[2022-04-22] MEDS: ONDANSETRON 4 MG/2 ML INJ IV (08:31)
[2022-04-22] MEDS: MORPHINE 4 MG/ML INJ IV (08:31)
[2022-04-22 08:32] LABS: Bacteria Urine None Seen; Culture Indicated Urine Cult Not Indicated; Hyaline Casts Urine 1-5/LPF
[2022-04-22 09:30] VITALS: BP 123/72; PULSE 70; RESP 16; O2SAT 96
== END 2022-04-22 09:31 | disposition home or self-care (01) ==
PROVIDERS: Emergency Provider Emergency Medicine; PCP Family Medicine
DX: K57.92 Diverticulitis of intestine, part unspecified, without perforation or abscess without bleeding (principal)
CPT/HCPCS: 36415; 74176; 80053; 81001; 83690; 85025; 96374; 96375; 99284; J2270; J2405

== ENCOUNTER 2022-09-11 03:30 | Emergency (ER) | payer OTHER, MEDICAID, SELFPAY ==
--- NOTE | 2022-09-11 03:32 | ED.GENADULT ---
HPI - General Adult General Chief complaint: Skin/Abscess/Foreign Body Stated complaint: reaction to shots post surgery Time Seen by Provider: 09/11/22 03:30 History of Present Illness HPI narrative: 51-year-old female nonsmoker without significant chronic medical history presents with family in the chief complaint of concern about a possible reaction to Lovenox shots that she has been receiving in the aftermath of a recent abdominal surgery. She had a partial colectomy performed at [facility] that went quite well and was discharged on Lovenox. She is been administering the shots on the backside of her upper arms and is concerned now that she has some bruising in this location and it feels a bit bumpy. She states that the shots are being administered here because that is where she was given them while in the hospital. She denies any face, tongue or lip swelling, she has no trouble breathing or swallowing. She denies any rash or other. She is not dizzy nor weak or lightheaded. She is had no fever or chills. She denies any significant abdominal pain and states that her incisions seem to be healing appropriately. Related Data Previous Rx's Medication Instructions Recorded oxycodone-acetaminophen 5 mg-325 1 tab PO Q6H PRN pain #20 tabs 11/11/21 mg tablet ciprofloxacin HCl 500 mg tablet 500 mg PO BID #14 tabs 04/22/22 (Cipro) hydrocodone 5 mg-acetaminophen 325 1 tab PO Q6H PRN pain #10 tabs 04/22/22 mg tablet ondansetron 4 mg disintegrating 4 mg PO Q8H PRN nausea and 04/22/22 tablet vomiting #10 tabs Allergies Allergy/AdvReac Type Severity Reaction Status Date / Time Penicillins Allergy Verified 11/11/21 09:43 Review of Systems Review of Systems Narrative: GENERAL: See HPI HEENT: See HPI RESPIRATORY: See HPI CARDIOVASCULAR: See HPI GASTROINTESTINAL: Denies nausea, vomiting, abdominal pain, diarrhea, constipation, melena. : Denies dysuria, frequency, incontinence, hematuria, urinary retention. MUSCULOSKELETAL: denies weakness, joint pain, or bony pain SKIN: See HPI NEUROLOGIC: Denies weakness, headache, numbness, change in speech, confusion, seizures, incoordination. PSYCHIATRIC: No concerning psychosocial issues. 12 point review of systems is negative except for those stated above Patient History Social History lives independently: Yes Smoking Status: Never smoker Smoking Status: Never smoker alcohol intake frequency: 0-2 drinks per day Substance Use Type: does not use Exam Narrative Exam Narrative: GENERAL: [51] year old patient appears stated age. Well-developed patient, in mild distress. Anxious HEAD: Atraumatic. Normocephalic. EYES: Pupils equal round and reactive. Extraocular motions intact. No scleral icterus. No injection or drainage. ENT: No face, tongue, lip or throat swelling, managing secretions and airway without difficulty Nose without bleeding, purulent drainage. Throat without erythema, tonsillar hypertrophy or exudate. Airway patent. NECK: Trachea midline. Non tender CARDIOVASCULAR: Regular rate and rhythm without murmurs, gallops, or rubs. RESPIRATORY: Clear to auscultation. Breath sounds equal bilaterally. No wheezes, rales, or rhonchi. GASTROINTESTINAL: Abdomen soft, slightly tender, incisions are clean, dry and intact, bowel sounds present EXTREMITIES: No edema or joint tenderness. BACK: Nontender without deformity or crepitance. No flank tenderness. NEURO: AOx3. SKIN: Posterior upper arms bilaterally with slightly tender ecchymosis, no wheals Initial Vital Signs Initial Vital Signs: Vital Signs Temperature 98 F 09/11/22 03:50 Pulse Rate 88 09/11/22 03:50 Respiratory Rate 20 09/11/22 03:50 Blood Pressure 130/80 09/11/22 03:50 Pulse Oximetry 99 09/11/22 03:50 Oxygen Delivery Method 09/11/22 03:50 Course Vital Signs Vital signs: Vital Signs - 8 hr 09/11/22 03:50 Temperature 98 F Pulse Rate 88 Respiratory Rate 20 Blood Pressure 130/80 Pulse Oximetry 99 Oxygen Delivery Method Room Air Medical Decision Making MDM Narrative Medical decision making narrative: 51-year-old female without significant chronic medical history presents with her mother for evaluation of painful lumps on her arms. She is been giving herself shots of Lovenox in her bilateral upper arms and has developed what appears to be small hematomas in the region of injection. There is no sign of infection such as increased redness, warmth or circumferential swelling. She has no systemic complaints such as fever, chills nor nausea or vomiting. She has no face, tongue, lip or throat swelling or other elements of allergic reaction. Her history and physical exam are most consistent with small bruises that are very common in the region of Lovenox injections. She is been given reassurance, return precautions have been discussed and questions have been answered to her apparent satisfaction Discharge Plan Departure Patient Disposition: Home Clinical Impression: Feared condition not demonstrated Activity Restrictions/Additional Instructions: *You have been diagnosed with [ no evidence of allergic reaction or severe consequence of medication administration] *What to do: *Please continue to take your regular medications as directed. *Please follow up with your primary care provider in 2-3 days, call for an appointment. Let them know you were seen in the Emergency Department and that we ask that you be seen in follow up. We will electronically transmit a record of today's note if your PCP is in our system *Return to Emergency Department if you should have any new, worsening or concerning symptoms, such as [fever greater than 101 F, shaking chills, worsening pain, persistent vomiting or other bothersome symptoms] Prescriptions: No Action oxycodone-acetaminophen 5-325 mg tablet 1 tab PO Q6H PRN (Reason: pain) Qty: 20 0RF hydrocodone-acetaminophen 5-325 mg tablet 1 tab PO Q6H PRN (Reason: pain) Qty: 10 0RF ciprofloxacin HCl [Cipro] 500 mg tablet 500 mg PO BID Qty: 14 0RF ondansetron 4 mg tablet,disintegrating 4 mg PO Q8H PRN (Reason: nausea and vomiting) Qty: 10 0RF Referrals: Sang Leblanc DO [Primary Care Provider] - Visit Report Forms: Patient Portal/API
[2022-09-11 03:50] VITALS: BP 130/80; PULSE 88; RESP 20; TEMP 36.6; O2SAT 99; BMI 34.7
== END 2022-09-11 04:00 | disposition home or self-care (01) ==
PROVIDERS: Emergency Provider Emergency Medicine; PCP Family Medicine
DX: T78.40XA Allergy, unspecified, initial encounter (principal)
CPT/HCPCS: 99281

== ENCOUNTER 2023-01-15 06:11 | Emergency (ER) | payer OTHER, MEDICAID, SELFPAY ==
[2023-01-15] VITALS (17 sets, daily range): BP systolic 115–161; BP diastolic 65–87; PULSE 58–72; RESP 18; TEMP 36.6; O2SAT 96–98; BMI 36.6
--- NOTE | 2023-01-15 07:02 | PC.NURSE ---
pt states she feels like her lungs are scratching when she takes a deep breath, + productive cough
[2023-01-15 07:13] LABS: Add Manual Diff / Slide Review NO; Basophils Absolute Auto 100 /uL (0-100); Basophils Percent Auto 1.4 % (0-2); Eosinophils Absolute Auto 100 /uL (0-450); Eosinophils Percent Auto 2.4 % (2-4); Hematocrit 36.2 % (36-46); Hemoglobin 12.5 g/dL (12.0-16.0); Lymphocytes Absolute Auto 1600 /uL (1100-4500); Lymphocytes Percent Auto 36.1 % (25-40); Mean Corpuscular HGB Conc 34.6 % (30-36); Mean Corpuscular Hemoglobin 32.9 PG (26-34); Mean Corpuscular Volume 95.2 fL (80-100); Monocytes Absolute Auto 500 /uL (0-900); Monocytes Percent Auto 12.5 % (3-14); Neutrophils Absolute Auto 2100 /uL (1500-7000); Neutrophils Percent Auto 47.6 % (50-75); Platelet Count 163 X10^3/uL (150-400); Red Cell Distribution Width 15.1 % (11.6-14.8); White Blood Cell Count 4.4 X10^3/uL (4.5-11.0)
--- NOTE | 2023-01-15 07:22 | DI.RAD.S_ITS ---
PROCEDURE: XR CHEST 1V INDICATIONS: Cough TECHNIQUE: One view of the chest was acquired. COMPARISON: [facility], CR, XR CHEST 2V, 10/22/2021, 17:41. FINDINGS: Surgical changes and devices: None. Lungs and pleura: Lungs are clear. No pleural effusions or pneumothorax. Mediastinum: Mediastinal contours appear normal. Heart size is normal. Bones and chest wall: No suspicious bony lesions. Overlying soft tissues appear unremarkable. IMPRESSION: No acute cardiopulmonary abnormality. Approved by: Alan Anna M.D. on 01/15/2023 at 8:01
--- NOTE | 2023-01-15 07:25 | ED.NAVMDI ---
HPI - Nausea/Vomiting/Diarrhea General Chief complaint: Nausea/Vomiting/Diarrhea Stated complaint: chest pressure/cough/vomiting Time Seen by Provider: 01/15/23 07:00 Source: patient Mode of arrival: Ambulatory Limitations: no limitations History of Present Illness HPI Narrative: The patient has been ill for 5 days. She initially complained of cough, and congestion. She now has ongoing cough but no dyspnea. The cough is nonproductive. She is no hemoptysis. She is not experiencing chest pain. She is now also experiencing nausea with mild diarrhea. She is not currently vomiting. She is a nonsmoker. She is no chronic respiratory disease. She is status post bowel resection due to diverticulitis. She has no significant abdominal pain with the nausea, vomiting diarrhea at this time. She has no dysuria hematuria. She is no back pain. She is not been exposed to others with similar complaints. Related Data Previous Rx's Medication Instructions Recorded oxycodone-acetaminophen 5 mg-325 1 tab PO Q6H PRN pain #20 tabs 11/11/21 mg tablet ciprofloxacin HCl 500 mg tablet 500 mg PO BID #14 tabs 04/22/22 (Cipro) hydrocodone 5 mg-acetaminophen 325 1 tab PO Q6H PRN pain #10 tabs 04/22/22 mg tablet ondansetron 4 mg disintegrating 4 mg PO Q8H PRN nausea and 04/22/22 tablet vomiting #10 tabs Allergies Allergy/AdvReac Type Severity Reaction Status Date / Time Penicillins Allergy Verified 11/11/21 09:43 Review of Systems Review of Systems ROS Unobtainable: All systems reviewed & are unremarkable except as noted in HPI and below Patient History Medical History (Updated 01/15/23 @ 12:07 by Mendel Whitaker MD) No significant past medical history Social History lives independently: Yes Smoking Status: Never smoker Smoking Status: Never smoker alcohol intake frequency: 0-2 drinks per day Substance Use Type: does not use Exam Initial Vital Signs Initial Vital Signs: Vital Signs Temperature 97.9 F 01/15/23 06:40 Pulse Rate 70 01/15/23 06:40 Respiratory Rate 18 01/15/23 06:40 Blood Pressure 161/87 H 01/15/23 06:40 Pulse Oximetry 97 01/15/23 06:40 Oxygen Delivery Method Room Air 01/15/23 06:40 Const General: cooperative, comfortable, disheveled and other ( she appears physically fatigued) Nutritional Appearance: average body habitus [facility] Head: normocephalic and atraumatic Face and sinus: normal facial exam and sinuses nontender Mouth: oral mucosae normal Throat: posterior oropharynx normal Eyes General: Yes appearance normal, both eyes and all related structures Neck Neck: normal visual inspection and no meningeal signs Resp Effort & Inspection: normal respiratory effort Auscultation: clear to auscultation bilaterally Cardio Palpation: normal PMI Rate: regular rate Rhythm: regular rhythm Heart Sounds: S1 normal and S2 normal GI Inspection: normal to inspection Other: mild epigastric tenderness with palpation. No distension. Bowel sounds are normal. No masses. Back/Spine/Pelvis Back: normal to inspection and No CVA tenderness Skin General: no rashes or lesions noted Neuro General: patient alert, patient awake, patient oriented x3 and no focal motor deficits Extrem General: normal to inspection, full ROM, no pedal edema and no calf tenderness Psych Appearance: grossly normal Course Course Course Narrative: Patient is feeling much better after IV hydration, IV meds given. Her elevated glucose is discussed, she is on medications. Chest x-ray is clear. Evaluation reveals rhino virus. 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 I have given her work note for 3 days off work. Orders Ordered: ED Orders 01/15/23 06:56 Complete Blood Count AUTO DIFF Stat Comprehensive Metabolic Panel Stat Lipase Stat 01/15/23 07:22 Chest [XR chest 1V] Stat 01/15/23 08:02 Respiratory Panel (Film Array) Stat 01/15/23 09:12 Urinalysis and Microscopic Stat Ondansetron HCl (Ondansetron 4 Mg Odt) 4 mg PO NOW PRN PRN Reason: Nausea And Vomiting Ondansetron HCl (Ondansetron 4 Mg/2 Ml Inj) 4 mg IV NOW PRN PRN Reason: Nausea And Vomiting Last Admin: 01/15/23 07:47 Dose: 4 mg Documented By: HEIDY Discontinued Medications Sodium Chloride (Normal Saline 0.9%) 1,000 mls @ 1,000 mls/hr IV BOLUS ONE Stop: 01/15/23 08:21 Last Infusion: 01/15/23 08:23 Dose: 0 mls/hr Documented By: Admin: 01/15/23 07:49 Dose: 1,000 mls/hr Documented By: HEIDY Ketorolac Tromethamine (Ketorolac 30 Mg/Ml Vial) 15 mg IV NOW ONE Stop: 01/15/23 07:23 Last Admin: 01/15/23 07:48 Dose: 15 mg Documented By: HEIDY Vital Signs Vital signs: Vital Signs - 8 hr 01/15/23 06:40 01/15/23 07:57 01/15/23 07:58 Temperature 97.9 F Pulse Rate 70 58 L Respiratory Rate 18 Blood Pressure 161/87 H 117/68 Pulse Oximetry 97 96 Oxygen Delivery Method Room Air 01/15/23 07:58 01/15/23 08:00 01/15/23 08:00 Temperature Pulse Rate 60 61 Respiratory Rate Blood Pressure 119/65 Pulse Oximetry 97 96 Oxygen Delivery Method 01/15/23 08:20 01/15/23 08:20 01/15/23 08:30 Temperature Pulse Rate 59 L 60 Respiratory Rate Blood Pressure 115/65 Pulse Oximetry 97 98 Oxygen Delivery Method 01/15/23 08:40 01/15/23 08:40 01/15/23 09:00 Temperature Pulse Rate 62 Respiratory Rate Blood Pressure 124/74 119/68 Pulse Oximetry 98 Oxygen Delivery Method 01/15/23 09:00 01/15/23 09:24 01/15/23 09:24 Temperature Pulse Rate 64 61 Respiratory Rate Blood Pressure 135/68 Pulse Oximetry 97 97 Oxygen Delivery Method 01/15/23 09:30 01/15/23 09:41 01/15/23 09:41 Temperature Pulse Rate 62 65 Respiratory Rate Blood Pressure 132/79 Pulse Oximetry 97 97 Oxygen Delivery Method 01/15/23 10:00 01/15/23 10:00 01/15/23 10:20 Temperature Pulse Rate 64 Respiratory Rate Blood Pressure 127/78 139/70 Pulse Oximetry 97 Oxygen Delivery Method 01/15/23 10:20 01/15/23 10:30 01/15/23 10:40 Temperature Pulse Rate 72 67 Respiratory Rate Blood Pressure 124/73 Pulse Oximetry 98 97 Oxygen Delivery Method 01/15/23 10:40 01/15/23 11:00 01/15/23 11:00 Temperature Pulse Rate 65 69 Respiratory Rate Blood Pressure 135/78 Pulse Oximetry 97 97 Oxygen Delivery Method MDM - Nausea/Vomiting/Diarrhea Lab Data 01/15/23 06:56 01/15/23 06:56 Labs: Lab Results 01/15/23 01/15/23 01/15/23 Range/Units 06:56 06:56 08:02 WBC 4.4 L (4.5-11.0) X10^3/uL RBC 3.80 L (4.0-5.2) X10^6/uL Hgb 12.5 (12.0-16.0) g/dL Hct 36.2 (36-46) % MCV 95.2 (80-100) fL MCH 32.9 (26-34) PG MCHC 34.6 (30-36) % RDW 15.1 H (11.6-14.8) % Plt Count 163 (150-400) X10^3/uL Neut % (Auto) 47.6 L (50-75) % Lymph % (Auto) 36.1 (25-40) % [place] % (Auto) 12.5 (3-14) % Eos % (Auto) 2.4 (2-4) % Baso % (Auto) 1.4 (0-2) % Neut # (Auto) 2100 (1029-5702) /uL Lymph # (Auto) 1600 (4683-2800) /uL [place] # (Auto) 500 (0-900) /uL Eos # (Auto) 100 (0-450) /uL Baso # (Auto) 100 (0-100) /uL Sodium 139 (137-145) mmol/L Potassium 4.1 (3.4-5.1) mmol/L Chloride 107 (98-107) mmol/L Carbon Dioxide 21 L (22-32) mmol/L BUN 27 H (7-17) mg/dL Creatinine 0.65 (0.52-1.04) mg/dL Estimated GFR > 60 (>60) mL/min BUN/Creatinine Ratio 41.5 H (6-22) Glucose 169 H (70-100) mg/dL Calcium 9.0 (8.4-10.2) mg/dL Total Bilirubin 0.6 (0.2-1.3) mg/dL AST 33 (14-36) IU/L ALT 31 (<35) IU/L Alkaline Phosphatase 70 (38-126) U/L Total Protein 7.4 (6.3-8.2) g/dL Albumin 4.4 (3.5-5.0) g/dL Globulin 3.0 (1.7-4.1) g/dL Albumin/Globulin Ratio 1.5 (1.0-2.8) Lipase 243 (23-300) U/L Urine Color Urine Appearance Urine pH (4.5-8.0) Ur Specific [place] (1.000-1.035) Urine Protein (Negative) Urine Glucose (UA) (Negative) g/dL Urine Ketones (NEGATIVE) Urine Occult Blood (Negative) Urine Nitrate (Negative) Urine Bilirubin (NEGATIVE) Urine Urobilinogen (0.2) E.U./dL Ur Leukocyte Esterase (NEGATIVE) Urine RBC (0-5/HPF) Urine WBC (0-5/HPF) Ur Squamous Epith Cells (0-5/HPF) Urine Bacteria (None) Ur Culture Indicated? Chlamy pneumoniae PCR Not detected (Not Detect) Adenovirus (PCR) Not detected (Not Detect) B. pertussis DNA (PCR) Not detected (Not Detecte) B.parapertussis DNA PCR Not detected (Not Detecte) Coronavirus OC43 (PCR) Not detected (Not Detect) Coronavirus HKU1 (PCR) Not detected (Not Detect) Coronavirus 229E (PCR) Not detected (Not Detect) SARS-CoV-2 (PCR) Not detected (Not Detecte) Coronavirus NL63 (PCR) Detected H (Not Detect) Human Metapneumovir PCR Not detected (Not Detect) Influenza Type A (PCR) Not detected (Not Detect) Influenza Type B (PCR) Not detected (Not Detect) M. pneumoniae (PCR) Not detected (Not Detect) Parainfluenza 1 (PCR) Not detected (Not Detect) Parainfluenza 2 (PCR) Not detected (Not Detect) Parainfluenza 3 (PCR) Not detected (Not Detect) Parainfluenza 4 (PCR) Not detected (Not Detect) RSV (PCR) Not detected (Not Detect) Entero/Rhino (PCR) Detected H (Not Detect) 01/15/23 Range/Units 09:12 WBC (4.5-11.0) X10^3/uL RBC (4.0-5.2) X10^6/uL Hgb (12.0-16.0) g/dL Hct (36-46) % MCV (80-100) fL MCH (26-34) PG MCHC (30-36) % RDW (11.6-14.8) % Plt Count (150-400) X10^3/uL Neut % (Auto) (50-75) % Lymph % (Auto) (25-40) % [place] % (Auto) (3-14) % Eos % (Auto) (2-4) % Baso % (Auto) (0-2) % Neut # (Auto) (0623-2110) /uL Lymph # (Auto) (4986-7615) /uL [place] # (Auto) (0-900) /uL Eos # (Auto) (0-450) /uL Baso # (Auto) (0-100) /uL Sodium (137-145) mmol/L Potassium (3.4-5.1) mmol/L Chloride (98-107) mmol/L Carbon Dioxide (22-32) mmol/L BUN (7-17) mg/dL Creatinine (0.52-1.04) mg/dL Estimated GFR (>60) mL/min BUN/Creatinine Ratio (6-22) Glucose (70-100) mg/dL Calcium (8.4-10.2) mg/dL Total Bilirubin (0.2-1.3) mg/dL AST (14-36) IU/L ALT (<35) IU/L Alkaline Phosphatase (38-126) U/L Total Protein (6.3-8.2) g/dL Albumin (3.5-5.0) g/dL Globulin (1.7-4.1) g/dL Albumin/Globulin Ratio (1.0-2.8) Lipase (23-300) U/L Urine Color Yellow Urine Appearance Clear Urine pH 6.0 (4.5-8.0) Ur Specific [place] 1.025 (1.000-1.035) Urine Protein 1+ H (Negative) Urine Glucose (UA) Negative (Negative) g/dL Urine Ketones Negative (NEGATIVE) Urine Occult Blood Trace-intact (Negative) Urine Nitrate Negative (Negative) Urine Bilirubin Negative (NEGATIVE) Urine Urobilinogen 0.2 (0.2) E.U./dL Ur Leukocyte Esterase Negative (NEGATIVE) Urine RBC None seen (0-5/HPF) Urine WBC 0-1/hpf (0-5/HPF) Ur Squamous Epith Cells None seen (0-5/HPF) Urine Bacteria None seen (None) Ur Culture Indicated? Cult not indicated Chlamy pneumoniae PCR (Not Detect) Adenovirus (PCR) (Not Detect) B. pertussis DNA (PCR) (Not Detecte) B.parapertussis DNA PCR (Not Detecte) Coronavirus OC43 (PCR) (Not Detect) Coronavirus HKU1 (PCR) (Not Detect) Coronavirus 229E (PCR) (Not Detect) SARS-CoV-2 (PCR) (Not Detecte) Coronavirus NL63 (PCR) (Not Detect) Human Metapneumovir PCR (Not Detect) Influenza Type A (PCR) (Not Detect) Influenza Type B (PCR) (Not Detect) M. pneumoniae (PCR) (Not Detect) Parainfluenza 1 (PCR) (Not Detect) Parainfluenza 2 (PCR) (Not Detect) Parainfluenza 3 (PCR) (Not Detect) Parainfluenza 4 (PCR) (Not Detect) RSV (PCR) (Not Detect) Entero/Rhino (PCR) (Not Detect) Point of Care Testing Test Results Negative Urine Dip Bedside Urine Glucose Negative Bedside Urine Bilirubin - Negative Bedside Urine Ketone - Negative Urine Specific [place] 1.025 Bedside Urine Occult Blood + Bedside Urine pH 5.5 Bedside Urine Protein + 30 Bedside Urine Urobilinogen - Negative Bedside Urine Nitrite - Negative Bedside Urine Leukocytes - Negative Esterase Imaging Data Chest x-ray: Radiologist's Impression: No acute cardiopulmonary disease. Discharge Plan Departure Patient Disposition: Home Clinical Impression: Viral respiratory illness Instructions: DI for Viral Syndrome Activity Restrictions/Additional Instructions: Rest at home. Be sure you are drinking plenty of fluids and remain well hydrated. Tylenol for body aches. No work for 3 days. Anticipate symptoms resolving in the next few days, return here if obviously worse. Return if you develop fever, or increased respiratory difficulty. Prescriptions: No Action oxycodone-acetaminophen 5-325 mg tablet 1 tab PO Q6H PRN (Reason: pain) Qty: 20 0RF hydrocodone-acetaminophen 5-325 mg tablet 1 tab PO Q6H PRN (Reason: pain) Qty: 10 0RF ciprofloxacin HCl [Cipro] 500 mg tablet 500 mg PO BID Qty: 14 0RF ondansetron 4 mg tablet,disintegrating 4 mg PO Q8H PRN (Reason: nausea and vomiting) Qty: 10 0RF Referrals: Sang Leblanc DO [Primary Care Provider] - Stand Alone Forms: Patient Portal/API, Work Release Note
[2023-01-15 07:28] LABS: Alanine Aminotransferase 31 IU/L (<35); Albumin 4.4 g/dL (3.5-5.0); Albumin Globulin Ratio 1.5 (1.0-2.8); Alkaline Phosphatase 70 U/L (38-126); Aspartate Aminotransferase 33 IU/L (14-36); BUN Creatinine Ratio 41.5 (6-22); Bilirubin Total 0.6 mg/dL (0.2-1.3); Blood Urea Nitrogen 27 mg/dL (7-17); Carbon Dioxide 21 mmol/L (22-32); Chloride 107 mmol/L (98-107); Estimated Glomerular Filt Rate > 60 mL/min (>60); Glucose 169 mg/dL (70-100); HEMOLYSIS 19 (0-50); Lipase 243 U/L (23-300); Potassium 4.1 mmol/L (3.4-5.1); Sodium 139 mmol/L (137-145); Total Protein 7.4 g/dL (6.3-8.2)
[2023-01-15] MEDS: ONDANSETRON 4 MG/2 ML INJ IV (07:47)
[2023-01-15] MEDS: KETOROLAC 30 MG/ML VIAL 15 MG IV (07:48)
[2023-01-15] MEDS: SODIUM CHLORIDE 0.9% 1,000 ML 1000 ML IV (07:49)
[2023-01-15 09:06] LABS: Adenovirus Not Detected (Not Detect); B. parapertussis Not Detected (Not Detecte); Bordetella pertussis Not Detected (Not Detecte); Chlamydophila pneumoniae Not Detected (Not Detect); Coronavirus 229E Not Detected (Not Detect); Coronavirus HKU1 Not Detected (Not Detect); Coronavirus NL 63 Detected (Not Detect); Coronavirus OC43 Not Detected (Not Detect); Human Metapneumovirus Not Detected (Not Detect); Human Rhinovirus/Enterovirus Detected (Not Detect); Influenza A Not Detected (Not Detect); Influenza B Not Detected (Not Detect); Mycoplasma pneumoniae Not Detected (Not Detect); Parainfluenza Virus 1 Not Detected (Not Detect); Parainfluenza Virus 2 Not Detected (Not Detect); Parainfluenza Virus 3 Not Detected (Not Detect); Parainfluenza Virus 4 Not Detected (Not Detect); Respiratory Syncytial Virus Not Detected (Not Detect); SARS- CoV-2 Not Detected (Not Detecte)
[2023-01-15 09:31] LABS: Appearance Urine UA CLEAR; Bilirubin Urine UA NEGATIVE (NEGATIVE); Color Urine UA YELLOW; Glucose Urine UA NEGATIVE (Negative); Ketones Urine UA NEGATIVE (NEGATIVE); Leukocyte Esterase Urine UA NEGATIVE (NEGATIVE); Nitrite Urine UA NEGATIVE (Negative); Occult Blood Urine UA TRACE-INTACT (Negative); Protein Urine UA 1+ (Negative); Specific Gravity Urine UA 1.025 (1.000-1.035); Urobilinogen Urine UA 0.2 E.U./dL (0.2)
[2023-01-15 09:53] LABS: Bacteria Urine None Seen; Culture Indicated Urine Cult Not Indicated; RBC Urine None Seen (0-5/HPF); Squamous Epithelial Cell Urine None Seen (0-5/HPF); WBC Urine 0-1/HPF (0-5/HPF)
== END 2023-01-15 12:09 | disposition home or self-care (01) ==
PROVIDERS: Emergency Provider Emergency Medicine; PCP Family Medicine
DX: B34.8 Other viral infections of unspecified site (principal); R05.9 Cough, unspecified; Z20.822 Contact with and (suspected) exposure to COVID-19; B34.2 Coronavirus infection, unspecified
CPT/HCPCS: 36415; 71045; 80053; 81001; 81003; 81025; 83690; 85025; 87633; 96361; 96374; 96375; 99284; J1885; J2405

== ENCOUNTER 2023-04-14 08:23 | Emergency (ER) | payer OTHER, MEDICAID, SELFPAY ==
[2023-04-14 08:38] VITALS: BP 154/109; PULSE 77; RESP 16; TEMP 36.5; O2SAT 97; BMI 36.6
[2023-04-14 09:00] LABS: Appearance Urine UA SL CLOUDY; Bacteria Urine Moderate (10-30); Color Urine UA ORANGE; RBC Urine 10-30/HPF (0-5/HPF); Squamous Epithelial Cell Urine 1-5 /HPF (0-5/HPF); WBC Urine 10-30/HPF (0-5/HPF)
[2023-04-14 09:01] LABS: Culture Indicated Urine Specimen Cultured
--- NOTE | 2023-04-14 10:22 | ED.FEMALEGU ---
HPI - Female Genitourinary <Radha Burgos PA-C - Last Filed: 04/14/23 10:44> General Chief complaint: Urogenital-Female Stated complaint: poss bladder infection Time Seen by Provider: 04/14/23 10:01 History of Present Illness HPI Narrative: 52-year-old female with no reported past medical history presents to the ED with 2 days of dysuria. Patient endorses dysuria, urinary frequency, hematuria, foul-smelling urine. Patient endorses mild nausea, no vomiting. Patient denies fever, chills. Patient endorses some suprapubic pain, denies flank pain. Patient denies chest pain, shortness of breath, lightheadedness, dizziness, syncope. Related Data Previous Rx's Medication Instructions Recorded oxycodone-acetaminophen 5 mg-325 1 tab PO Q6H PRN pain #20 tabs 11/11/21 mg tablet ciprofloxacin HCl 500 mg tablet 500 mg PO BID #14 tabs 04/22/22 (Cipro) hydrocodone 5 mg-acetaminophen 325 1 tab PO Q6H PRN pain #10 tabs 04/22/22 mg tablet ondansetron 4 mg disintegrating 4 mg PO Q8H PRN nausea and 04/22/22 tablet vomiting #10 tabs nitrofurantoin 100 mg PO Q12H 5 days #10 caps 04/14/23 monohydrate/macrocrystals 100 mg capsule (Macrobid) Allergies Allergy/AdvReac Type Severity Reaction Status Date / Time Penicillins Allergy Verified 11/11/21 09:43 Review of Systems <Radha Burgos PA-C - Last Filed: 04/14/23 10:44> Review of Systems ROS Unobtainable: All systems reviewed & are unremarkable except as noted in HPI and below Constitutional Constitutional: Denies chills, Denies fatigue, Denies fever(s), Denies frequent falls, Denies lethargy and Denies weakness Eyes Eyes: Denies change in vision, Denies eye discharge, Denies irritation and Denies loss of vision ENT Ears, Nose, Mouth, and Throat: Denies change in voice, Denies dizziness, Denies neck pain, Denies sore throat and Denies throat swelling Cardiovascular Cardiovascular: Denies chest pain, Denies irregular heart rhythm, Denies lightheadedness, Denies palpitations, Denies dyspnea, Denies dyspnea on exertion and Denies orthopnea Respiratory Respiratory: Denies cough, Denies dyspnea, Denies dyspnea on exertion and Denies wheezing Gastrointestinal Gastrointestinal: Denies abdominal pain, Denies change in bowel habits, Denies diarrhea, Reports nausea and Denies vomiting Genitourinary Genitourinary: Denies hematuria, Reports dysuria, Reports dysuria, Denies flank pain, Denies urinary incontinence and Denies urinary urgency Comments: Urinary frequency, hematuria Musculoskeletal Musculoskeletal: Denies back pain, Denies muscle weakness, Denies neck pain, Denies numbness and Denies tingling Integumentary/Breasts Skin/Breast: Denies pruritus, Denies erythema, Denies rash and Denies wounds Neurologic Neurologic: Denies behavioral changes, Denies confusion, Denies dizziness, Denies frequent falls, Denies loss of vision, Denies numbness, Denies tingling and Denies weakness Psychiatric Psychiatric: Denies anxiety, Denies behavioral changes, Denies confusion, Denies depression, Denies homicidal ideation and Denies suicidal ideation Endocrine Endocrine: Denies fatigue, Denies flushing and Denies palpitations Hematologic/Lymphatic Hematologic/Lymphatic: Denies easy bruising Allergic/Immunologic Allergic/Immunologic: Denies urticaria, Denies throat swelling and Denies wheezing Patient History <Radha Burgos PA-C - Last Filed: 04/14/23 10:44> Medical History No significant past medical history alcohol intake frequency: 0-2 drinks per day Substance Use Type: does not use Exam <Radha Burgos PA-C - Last Filed: 04/14/23 10:44> Narrative Exam Narrative: Const General:?cooperative, healthy appearing and comfortable [facility] Head:?normal to inspection Ears:?hearing grossly normal bilaterally Nose:?external nose normal Face and sinus:?normal facial exam and sinuses nontender Mouth:?oral mucosae normal Throat:?posterior oropharynx normal Eyes General:?appearance normal, both eyes and all related structures Neck Neck:?normal visual inspection and no lymphadenopathy noted Resp Effort & Inspection:?normal respiratory effort Auscultation:?clear to auscultation bilaterally Cardio Rate:?regular rate Rhythm:?regular rhythm GI Abdomen is soft, nondistended. Mildly tender to palpation in the suprapubic region. No CVA tenderness. Neuro General:?patient alert, patient awake and patient oriented x3 Initial Vital Signs Initial Vital Signs: Vital Signs Temperature 97.7 F 04/14/23 08:38 Pulse Rate 77 04/14/23 08:38 Respiratory Rate 16 04/14/23 08:38 Blood Pressure 154/109 H 04/14/23 08:38 Pulse Oximetry 97 04/14/23 08:38 Oxygen Delivery Method Room Air 04/14/23 08:38 <Abdi Villalobos DO - Last Filed: 04/14/23 12:31> Initial Vital Signs Initial Vital Signs: Vital Signs Temperature 97.7 F 04/14/23 08:38 Pulse Rate 77 04/14/23 08:38 Respiratory Rate 16 04/14/23 08:38 Blood Pressure 154/109 H 04/14/23 08:38 Pulse Oximetry 97 04/14/23 08:38 Oxygen Delivery Method Room Air 04/14/23 08:38 Course <Radha Burgos PA-C - Last Filed: 04/14/23 10:44> Orders Ordered: ED Orders 04/14/23 08:40 Urinalysis and Microscopic Stat Urine Culture Stat Vital Signs Vital signs: Vital Signs - 8 hr 04/14/23 08:38 04/14/23 10:47 Temperature 97.7 F Pulse Rate 77 74 Respiratory Rate 16 16 Blood Pressure 154/109 H 148/78 H Pulse Oximetry 97 97 Oxygen Delivery Method Room Air Room Air <DO Cassie Nunez Last Filed: 04/14/23 12:31> Orders Ordered: ED Orders 04/14/23 08:40 Urinalysis and Microscopic Stat Urine Culture Stat Vital Signs Vital signs: Vital Signs - 8 hr 04/14/23 08:38 04/14/23 10:47 Temperature 97.7 F Pulse Rate 77 74 Respiratory Rate 16 16 Blood Pressure 154/109 H 148/78 H Pulse Oximetry 97 97 Oxygen Delivery Method Room Air Room Air MDM - Female Genitourinary <RUTH Sandoval Last Filed: 04/14/23 10:44> Lab Data Labs: Lab Results 04/14/23 Range/Units 08:40 Urine Color [place] Urine Appearance Sl cloudy Urine pH TNP Ur Specific [place] TNP Urine Protein TNP Urine Glucose (UA) TNP Urine Ketones TNP Urine Occult Blood TNP Urine Nitrate TNP Urine Bilirubin TNP Urine Urobilinogen TNP Ur Leukocyte Esterase TNP Urine RBC 10-30/hpf H (0-5/HPF) Urine WBC 10-30/hpf H (0-5/HPF) Ur Squamous Epith Cells 1-5 /hpf (0-5/HPF) Urine Bacteria Moderate (10-30) H (None) Ur Culture Indicated? Specimen cultured MDM Narrative Medical decision making narrative: 52-year-old female with no reported past medical history presents to the ED with 2 days of dysuria. Concern for UTI, will obtain urinalysis. Urinalysis is positive for a urinary tract infection. Will treat with antibiotics. Patient may continue azo for 3 days. Discussed findings and plan with patient. Recommend PCP follow-up as soon as possible. ED return precautions discussed with patient. Patient verbalized understanding. Medical records reviewed: Yes <Abdi Villalobos DO - Last Filed: 04/14/23 12:31> Lab Data Labs: Lab Results 04/14/23 Range/Units 08:40 Urine Color [place] Urine Appearance Sl cloudy Urine pH TNP Ur Specific [place] TNP Urine Protein TNP Urine Glucose (UA) TNP Urine Ketones TNP Urine Occult Blood TNP Urine Nitrate TNP Urine Bilirubin TNP Urine Urobilinogen TNP Ur Leukocyte Esterase TNP Urine RBC 10-30/hpf H (0-5/HPF) Urine WBC 10-30/hpf H (0-5/HPF) Ur Squamous Epith Cells 1-5 /hpf (0-5/HPF) Urine Bacteria Moderate (10-30) H (None) Ur Culture Indicated? Specimen cultured Discharge Plan Departure Patient Disposition: Home Clinical Impression: Urinary tract infection Instructions: DI for Urinary Tract Infection (UTI) Activity Restrictions/Additional Instructions: You were evaluated in the ED today for painful urination. Your urine was positive for a urinary tract infection. You are being prescribed an antibiotic that you will take for the next 5 days, twice a day. Please complete the antibiotics as prescribed. You may take azo, however do not take it for more than 3 days. Return to the ED if you have worsening symptoms, persistent nausea, fever, chills. Please follow-up with your PCP as soon as possible. Prescriptions: New nitrofurantoin monohyd/m-cryst [Macrobid] 100 mg capsule 100 mg PO Q12H 5 Days Qty: 10 0RF Rx Instructions: must administer with a meal/food No Action oxycodone-acetaminophen 5-325 mg tablet 1 tab PO Q6H PRN (Reason: pain) Qty: 20 0RF hydrocodone-acetaminophen 5-325 mg tablet 1 tab PO Q6H PRN (Reason: pain) Qty: 10 0RF ciprofloxacin HCl [Cipro] 500 mg tablet 500 mg PO BID Qty: 14 0RF ondansetron 4 mg tablet,disintegrating 4 mg PO Q8H PRN (Reason: nausea and vomiting) Qty: 10 0RF Referrals: Sang Leblanc DO [Primary Care Provider] - Stand Alone Forms: Patient Portal/API <Abdi Villalobos DO - Last Filed: 04/14/23 12:31> Cosign ED Attending Cosignature Attestation: Dr Villalobos Co-Sign Statement: I was available for consultation during this patient's emergency department visit. This chart is signed by myself for administrative purposes only. I did not have direct contact with this patient during this visit. They were seen independently by the APC.
--- NOTE | 2023-04-14 10:41 | PC.NURSE ---
per lab unable to do dip for intensely colored urine. micro complete and culture reflexed
[2023-04-14 10:47] VITALS: BP 148/78; PULSE 74; RESP 16; O2SAT 97
== END 2023-04-14 10:49 | disposition home or self-care (01) ==
PROVIDERS: Emergency Medicine; Emergency Provider Student in an Organized Health Care Education/Training Program; PCP Family Medicine
DX: N39.0 Urinary tract infection, site not specified (principal)
CPT/HCPCS: 81001; 87077; 87086; 87186; 99281; 99283

== ENCOUNTER 2023-05-20 11:34 | Emergency (ER) | payer OTHER, MEDICAID, SELFPAY ==
[2023-05-20 11:51] VITALS: BP 169/95; PULSE 77; RESP 18; TEMP 36.8; O2SAT 98; BMI 35.1
--- NOTE | 2023-05-20 12:12 | DI.CT.S_ITS ---
PROCEDURE: CT ABDOMEN PELVIS W CON INDICATIONS: r flank pain TECHNIQUE: After the administration of intravenous contrast, axial sections acquired from the lung bases to the pubic symphysis. Coronal and sagittal reformats were performed. For radiation dose reduction, the following was used: automated exposure control, adjustment of mA and/or kV according to patient size. COMPARISON: None. FINDINGS: Image quality: Excellent. Lung bases: Unremarkable. Heart: No significant findings. ABDOMEN: Liver: Moderate to severe hepatic steatosis. Gallbladder: Absent. Biliary ducts: Unremarkable. Pancreas: Unremarkable. Spleen: Unremarkable. Adrenal Glands: Unremarkable. Kidneys and Ureters: Unremarkable. Stomach and Bowel: Stomach, small bowel loops, and colon are unremarkable. Prior partial colectomy, surgical anastomosis in the deep pelvis. Colonic diverticulosis without evidence of diverticulitis. Peritoneum: No abnormal intraperitoneal fluid. No free air. Ventral Wall: No hernias. Abdominal Nodes: No retroperitoneal or mesenteric adenopathy by size criteria. Vessels: Aorta and inferior vena cava are normal in size. PELVIS: Pelvic Organs: Bladder wall thickening with perivesicular fat stranding. Bladder: Unremarkable. Pelvic Nodes: No enlarged lymph nodes. Miscellaneous: No hernias are seen. Bones: Unremarkable. IMPRESSION: Bladder wall thickening with perivesicular fat stranding, concerning for cystitis. No renal stone or hydronephrosis. Moderate to severe hepatic steatosis. Dictated by: Jeferson Mercedes M.D. on 05/20/2023 at 16:17 Approved by: Jeferson Mercedes M.D. on 05/20/2023 at 16:19
[2023-05-20 13:02] LABS: Bacteria Urine None Seen; Culture Indicated Urine Specimen Cultured; RBC Urine 1-5/HPF (0-5/HPF); Squamous Epithelial Cell Urine None Seen (0-5/HPF); WBC Urine >100/HPF (0-5/HPF)
--- NOTE | 2023-05-20 13:22 | PC.NURSE ---
Pt was treated for UTI 04/24/23. 2 weeks ago sx returned. Pain,frequency,blood in urine,odor,cloudy and right flank pain since yesterday.
--- NOTE | 2023-05-20 13:42 | ED.FEMALEGU ---
HPI - Female Genitourinary <Radha Burgos PA-C - Last Filed: 05/20/23 19:35> General Chief complaint: Urogenital-Female Stated complaint: possible UTI/ w/ kidney pain Time Seen by Provider: 05/20/23 12:07 Source: patient Mode of arrival: Ambulatory History of Present Illness HPI Narrative: 52-year-old female with past medical history eosinophilic fasciitis, fibromyalgia, diabetes, diverticulitis, repeated UTIs presents to the ED with nausea, vomiting, right-sided flank pain, suprapubic pain, dysuria, chills, cloudy and foul-smelling urine. Patient was seen in the ED on 04/15/2023, diagnosed with a UTI, treated with nitrofurantoin. Subsequently, patient was switched to ciprofloxacin based on susceptibilities from the cultures. Patient states that she took both courses of antibiotics, felt better. However patient states that her symptoms started again after she completed the antibiotics. Patient denies fever, chest pain, shortness of breath, diarrhea, lightheadedness, dizziness, syncope. Related Data Previous Rx's Medication Instructions Recorded oxycodone-acetaminophen 5 mg-325 1 tab PO Q6H PRN pain #20 tabs 11/11/ mg tablet ciprofloxacin HCl 500 mg tablet 500 mg PO BID #14 tabs 04/22/22 (Cipro) hydrocodone 5 mg-acetaminophen 325 1 tab PO Q6H PRN pain #10 tabs 04/22/22 mg tablet ondansetron 4 mg disintegrating 4 mg PO Q8H PRN nausea and 04/22/22 tablet vomiting #10 tabs ciprofloxacin HCl 500 mg tablet 500 mg PO BID #10 tabs 04/18/23 (Cipro) cefpodoxime 200 mg tablet 200 mg PO Q12H 10 days #20 tabs 05/20/23 Allergies Allergy/AdvReac Type Severity Reaction Status Date / Time Penicillins Allergy Hives Verified 05/20/23 11:50 Review of Systems <Radha Burgos PA-C - Last Filed: 05/20/23 19:35> Review of Systems ROS Unobtainable: All systems reviewed & are unremarkable except as noted in HPI and below Constitutional Constitutional: Denies chills, Denies fatigue, Denies fever(s), Denies frequent falls, Denies lethargy and Denies weakness Eyes Eyes: Denies change in vision, Denies eye discharge, Denies irritation and Denies loss of vision ENT Ears, Nose, Mouth, and Throat: Denies change in voice, Denies dizziness, Denies neck pain, Denies sore throat and Denies throat swelling Cardiovascular Cardiovascular: Denies chest pain, Denies irregular heart rhythm, Denies lightheadedness, Denies palpitations, Denies dyspnea, Denies dyspnea on exertion and Denies orthopnea Respiratory Respiratory: Denies cough, Denies dyspnea, Denies dyspnea on exertion and Denies wheezing Gastrointestinal Gastrointestinal: Denies abdominal pain, Denies change in bowel habits, Denies diarrhea, Denies nausea and Denies vomiting Genitourinary Genitourinary: Denies hematuria, Reports dysuria, Denies flank pain, Denies urinary incontinence and Reports urinary urgency Comments: Right flank pain; urinary frequency Musculoskeletal Musculoskeletal: Denies back pain, Denies muscle weakness, Denies neck pain, Denies numbness and Denies tingling Integumentary/Breasts Skin/Breast: Denies pruritus, Denies erythema, Denies rash and Denies wounds Neurologic Neurologic: Denies behavioral changes, Denies confusion, Denies dizziness, Denies frequent falls, Denies loss of vision, Denies numbness, Denies tingling and Denies weakness Psychiatric Psychiatric: Denies anxiety, Denies behavioral changes, Denies confusion, Denies depression, Denies homicidal ideation and Denies suicidal ideation Endocrine Endocrine: Denies fatigue, Denies flushing and Denies palpitations Hematologic/Lymphatic Hematologic/Lymphatic: Denies easy bruising Allergic/Immunologic Allergic/Immunologic: Denies urticaria, Denies throat swelling and Denies wheezing Patient History <Radha Burgos PA-C - Last Filed: 05/20/23 19:35> Medical History No significant past medical history alcohol intake frequency: 0-2 drinks per day Substance Use Type: does not use Exam <Radha Burgos PA-C - Last Filed: 05/20/23 19:35> Narrative Exam Narrative: Const General:?cooperative, healthy appearing and comfortable [facility] Head:?normal to inspection Ears:?hearing grossly normal bilaterally Nose:?external nose normal Face and sinus:?normal facial exam and sinuses nontender Mouth:?oral mucosae normal Throat:?posterior oropharynx normal Eyes General:?appearance normal, both eyes and all related structures Neck Neck:?normal visual inspection and no lymphadenopathy noted Resp Effort & Inspection:?normal respiratory effort Auscultation:?clear to auscultation bilaterally Cardio Rate:?regular rate Rhythm:?regular rhythm GI Abdomen is soft, nondistended, nontender to palpation. There is some right-sided CVA tenderness to palpation. Neuro General:?patient alert, patient awake and patient oriented x3 Initial Vital Signs Initial Vital Signs: Vital Signs Temperature 98.3 F 05/20/23 11:51 Pulse Rate 77 05/20/23 11:51 Respiratory Rate 18 05/20/23 11:51 Blood Pressure 169/95 H 05/20/23 11:51 Pulse Oximetry 98 05/20/23 11:51 Oxygen Delivery Method Room Air 05/20/23 11:51 <Bere Sorto DO - Last Filed: 05/22/23 08:16> Initial Vital Signs Initial Vital Signs: Vital Signs Temperature 98.3 F 05/20/23 11:51 Pulse Rate 77 05/20/23 11:51 Respiratory Rate 18 05/20/23 11:51 Blood Pressure 169/95 H 05/20/23 11:51 Pulse Oximetry 98 05/20/23 11:51 Oxygen Delivery Method Room Air 05/20/23 11:51 Course <Radha Burgos PA-C - Last Filed: 05/20/23 19:35> Orders Ordered: Discontinued Medications Sodium Chloride (Normal Saline 0.9%) 1,000 mls @ 1,000 mls/hr IV BOLUS ONE Stop: 05/20/23 14:47 Last Infusion: 05/20/23 15:44 Dose: 0 mls/hr Documented By: Admin: 05/20/23 14:14 Dose: 1,000 mls/hr Documented By: ZARA Ceftriaxone Sodium 1,000 mg/ (Sodium Chloride) 100 mls @ 200 mls/hr IV NOW ONE Stop: 05/20/23 16:26 Last Infusion: 05/20/23 17:16 Dose: 0 mls/hr Documented By: Admin: 05/20/23 16:46 Dose: 200 mls/hr Documented By: OW Ketorolac Tromethamine (Ketorolac 30 Mg/Ml Vial) 15 mg IV NOW ONE Stop: 05/20/23 13:48 Last Admin: 05/20/23 14:15 Dose: 15 mg Documented By: ZARA Ondansetron HCl (Ondansetron 4 Mg Odt) 4 mg SL NOW PRN PRN Reason: Nausea And Vomiting Ondansetron HCl (Ondansetron 4 Mg/2 Ml Inj) 4 mg IV NOW PRN PRN Reason: Nausea And Vomiting Vital Signs Vital signs: Vital Signs - 8 hr 05/20/23 11:51 Temperature 98.3 F Pulse Rate 77 Respiratory Rate 18 Blood Pressure 169/95 H Pulse Oximetry 98 Oxygen Delivery Method Room Air <Bere Sorto DO - Last Filed: 05/22/23 08:16> Orders Ordered: Discontinued Medications Sodium Chloride (Normal Saline 0.9%) 1,000 mls @ 1,000 mls/hr IV BOLUS ONE Stop: 05/20/23 14:47 Last Infusion: 05/20/23 15:44 Dose: 0 mls/hr Documented By: Admin: 05/20/23 14:14 Dose: 1,000 mls/hr Documented By: ZARA Ceftriaxone Sodium 1,000 mg/ (Sodium Chloride) 100 mls @ 200 mls/hr IV NOW ONE Stop: 05/20/23 16:26 Last Infusion: 05/20/23 17:16 Dose: 0 mls/hr Documented By: Admin: 05/20/23 16:46 Dose: 200 mls/hr Documented By: RICH Ketorolac Tromethamine (Ketorolac 30 Mg/Ml Vial) 15 mg IV NOW ONE Stop: 05/20/23 13:48 Last Admin: 05/20/23 14:15 Dose: 15 mg Documented By: ZARA Ondansetron HCl (Ondansetron 4 Mg Odt) 4 mg SL NOW PRN PRN Reason: Nausea And Vomiting Ondansetron HCl (Ondansetron 4 Mg/2 Ml Inj) 4 mg IV NOW PRN PRN Reason: Nausea And Vomiting Vital Signs Vital signs: Vital Signs - 8 hr 05/20/23 11:51 Temperature 98.3 F Pulse Rate 77 Respiratory Rate 18 Blood Pressure 169/95 H Pulse Oximetry 98 Oxygen Delivery Method Room Air MDM - Female Genitourinary <Radha Burgos PA-C - Last Filed: 05/20/23 19:35> Lab Data 05/20/23 12:12 08/08/23 14:07 Labs: Lab Results 05/20/23 05/20/23 05/20/23 Range/Units 12:02 12:12 14:07 WBC 5.3 (4.5-11.0) X10^3/uL RBC 4.16 (4.0-5.2) X10^6/uL Hgb 13.4 (12.0-16.0) g/dL Hct 38.5 (36-46) % MCV 92.4 (80-100) fL MCH 32.2 (26-34) PG MCHC 34.9 (30-36) % RDW 14.1 (11.6-14.8) % Plt Count 153 (150-400) X10^3/uL Neut % (Auto) 61.1 (50-75) % Lymph % (Auto) 27.6 (25-40) % [place] % (Auto) 7.9 (3-14) % Eos % (Auto) 2.1 (2-4) % Baso % (Auto) 1.3 (0-2) % Neut # (Auto) 3200 (8319-5266) /uL Lymph # (Auto) 1500 (9398-2331) /uL [place] # (Auto) 400 (0-900) /uL Eos # (Auto) 100 (0-450) /uL Baso # (Auto) 100 (0-100) /uL PT 11.3 (10.1-12.7) SECONDS INR 1.0 (0.9-1.3) APTT 30 (26-36) SECONDS Sodium (137-145) mmol/L Potassium (3.4-5.1) mmol/L Chloride (98-107) mmol/L Carbon Dioxide (22-32) mmol/L BUN (7-17) mg/dL Creatinine (0.52-1.04) mg/dL Estimated GFR (>60) mL/min BUN/Creatinine Ratio (6-22) Glucose (70-100) mg/dL Calcium (8.4-10.2) mg/dL Total Bilirubin (0.2-1.3) mg/dL AST (14-36) IU/L ALT (<35) IU/L Alkaline Phosphatase (38-126) U/L Total Protein (6.3-8.2) g/dL Albumin (3.5-5.0) g/dL Globulin (1.7-4.1) g/dL Albumin/Globulin Ratio (1.0-2.8) Lipase (23-300) U/L Urine RBC 1-5/hpf D (0-5/HPF) Urine WBC >100/hpf H (0-5/HPF) Ur Squamous Epith Cells None seen (0-5/HPF) Urine Bacteria None seen (None) Ur Culture Indicated? Specimen cultured 05/20/23 Range/Units 14:07 WBC (4.5-11.0) X10^3/uL RBC (4.0-5.2) X10^6/uL Hgb (12.0-16.0) g/dL Hct (36-46) % MCV (80-100) fL MCH (26-34) PG MCHC (30-36) % RDW (11.6-14.8) % Plt Count (150-400) X10^3/uL Neut % (Auto) (50-75) % Lymph % (Auto) (25-40) % [place] % (Auto) (3-14) % Eos % (Auto) (2-4) % Baso % (Auto) (0-2) % Neut # (Auto) (3959-5465) /uL Lymph # (Auto) (2900-3019) /uL [place] # (Auto) (0-900) /uL Eos # (Auto) (0-450) /uL Baso # (Auto) (0-100) /uL PT (10.1-12.7) SECONDS INR (0.9-1.3) APTT (26-36) SECONDS Sodium 139 (137-145) mmol/L Potassium 4.2 (3.4-5.1) mmol/L Chloride 105 (98-107) mmol/L Carbon Dioxide 25 (22-32) mmol/L BUN 16 (7-17) mg/dL Creatinine 0.65 (0.52-1.04) mg/dL Estimated GFR > 60 (>60) mL/min BUN/Creatinine Ratio 24.6 H (6-22) Glucose 189 H (70-100) mg/dL Calcium 9.1 (8.4-10.2) mg/dL Total Bilirubin 0.7 (0.2-1.3) mg/dL AST 36 (14-36) IU/L ALT 29 (<35) IU/L Alkaline Phosphatase 86 (38-126) U/L Total Protein 7.7 (6.3-8.2) g/dL Albumin 4.6 (3.5-5.0) g/dL Globulin 3.1 (1.7-4.1) g/dL Albumin/Globulin Ratio 1.5 (1.0-2.8) Lipase 126 (23-300) U/L Urine RBC (0-5/HPF) Urine WBC (0-5/HPF) Ur Squamous Epith Cells (0-5/HPF) Urine Bacteria (None) Ur Culture Indicated? Urine Dip Bedside Urine Glucose 1000 mg/dl Bedside Urine Bilirubin - Negative Bedside Urine Ketone - Negative Urine Specific [place] 1.020 Bedside Urine Occult Blood +++ Bedside Urine pH 6.0 Bedside Urine Protein - Negative Bedside Urine Urobilinogen - Negative Bedside Urine Nitrite - Negative Bedside Urine Leukocytes ++ 125 Esterase MDM Narrative Medical decision making narrative: 52-year-old female with past medical history eosinophilic fasciitis, fibromyalgia, diabetes, diverticulitis, repeated UTIs presents to the ED with nausea, vomiting, right-sided flank pain, suprapubic pain, dysuria, chills, cloudy and foul-smelling urine. Concern for UTI versus pyelonephritis versus nephrolithiasis versus other intra-abdominal pathology versus other. Will obtain labs, UA, CT abdomen pelvis. Will give ketorolac for pain. Labs within normal limits. UA positive for UTI. CT abdomen pelvis shows cystitis, no other acute findings. Gave patient IV fluids, ceftriaxone IV. Discharged patient home with prescription for antibiotics. ED return precautions discussed with patient. Patient verbalized understanding. Medical records reviewed: Yes <Bere Sorto DO - Last Filed: 05/22/23 08:16> Lab Data Labs: Lab Results 05/20/23 05/20/23 05/20/23 Range/Units 12:02 12:12 14:07 WBC 5.3 (4.5-11.0) X10^3/uL RBC 4.16 (4.0-5.2) X10^6/uL Hgb 13.4 (12.0-16.0) g/dL Hct 38.5 (36-46) % MCV 92.4 (80-100) fL MCH 32.2 (26-34) PG MCHC 34.9 (30-36) % RDW 14.1 (11.6-14.8) % Plt Count 153 (150-400) X10^3/uL Neut % (Auto) 61.1 (50-75) % Lymph % (Auto) 27.6 (25-40) % [place] % (Auto) 7.9 (3-14) % Eos % (Auto) 2.1 (2-4) % Baso % (Auto) 1.3 (0-2) % Neut # (Auto) 3200 (4196-1515) /uL Lymph # (Auto) 1500 (7257-2040) /uL [place] # (Auto) 400 (0-900) /uL Eos # (Auto) 100 (0-450) /uL Baso # (Auto) 100 (0-100) /uL PT 11.3 (10.1-12.7) SECONDS INR 1.0 (0.9-1.3) APTT 30 (26-36) SECONDS Sodium (137-145) mmol/L Potassium (3.4-5.1) mmol/L Chloride (98-107) mmol/L Carbon Dioxide (22-32) mmol/L BUN (7-17) mg/dL Creatinine (0.52-1.04) mg/dL Estimated GFR (>60) mL/min BUN/Creatinine Ratio (6-22) Glucose (70-100) mg/dL Calcium (8.4-10.2) mg/dL Total Bilirubin (0.2-1.3) mg/dL AST (14-36) IU/L ALT (<35) IU/L Alkaline Phosphatase (38-126) U/L Total Protein (6.3-8.2) g/dL Albumin (3.5-5.0) g/dL Globulin (1.7-4.1) g/dL Albumin/Globulin Ratio (1.0-2.8) Lipase (23-300) U/L Urine RBC 1-5/hpf D (0-5/HPF) Urine WBC >100/hpf H (0-5/HPF) Ur Squamous Epith Cells None seen (0-5/HPF) Urine Bacteria None seen (None) Ur Culture Indicated? Specimen cultured 08/08/23 Range/Units 14:07 WBC (4.5-11.0) X10^3/uL RBC (4.0-5.2) X10^6/uL Hgb (12.0-16.0) g/dL Hct (36-46) % MCV (80-100) fL MCH (26-34) PG MCHC (30-36) % RDW (11.6-14.8) % Plt Count (150-400) X10^3/uL Neut % (Auto) (50-75) % Lymph % (Auto) (25-40) % [place] % (Auto) (3-14) % Eos % (Auto) (2-4) % Baso % (Auto) (0-2) % Neut # (Auto) (0920-4842) /uL Lymph # (Auto) (7192-6068) /uL [place] # (Auto) (0-900) /uL Eos # (Auto) (0-450) /uL Baso # (Auto) (0-100) /uL PT (10.1-12.7) SECONDS INR (0.9-1.3) APTT (26-36) SECONDS Sodium 139 (137-145) mmol/L Potassium 4.2 (3.4-5.1) mmol/L Chloride 105 (98-107) mmol/L Carbon Dioxide 25 (22-32) mmol/L BUN 16 (7-17) mg/dL Creatinine 0.65 (0.52-1.04) mg/dL Estimated GFR > 60 (>60) mL/min BUN/Creatinine Ratio 24.6 H (6-22) Glucose 189 H (70-100) mg/dL Calcium 9.1 (8.4-10.2) mg/dL Total Bilirubin 0.7 (0.2-1.3) mg/dL AST 36 (14-36) IU/L ALT 29 (<35) IU/L Alkaline Phosphatase 86 (38-126) U/L Total Protein 7.7 (6.3-8.2) g/dL Albumin 4.6 (3.5-5.0) g/dL Globulin 3.1 (1.7-4.1) g/dL Albumin/Globulin Ratio 1.5 (1.0-2.8) Lipase 126 (23-300) U/L Urine RBC (0-5/HPF) Urine WBC (0-5/HPF) Ur Squamous Epith Cells (0-5/HPF) Urine Bacteria (None) Ur Culture Indicated? Urine Dip Bedside Urine Glucose 1000 mg/dl Bedside Urine Bilirubin - Negative Bedside Urine Ketone - Negative Urine Specific [place] 1.020 Bedside Urine Occult Blood +++ Bedside Urine pH 6.0 Bedside Urine Protein - Negative Bedside Urine Urobilinogen - Negative Bedside Urine Nitrite - Negative Bedside Urine Leukocytes ++ 125 Esterase Discharge Plan Departure Patient Disposition: Home Clinical Impression: Urinary tract infection Instructions: DI for Urinary Tract Infection (UTI) Activity Restrictions/Additional Instructions: You were evaluated in the ED today for flank pain and urinary the discomfort. Your urine and CT abdomen pelvis does show a urinary tract infection, no other acute findings. You were given a dose of IV antibiotics in the ED and some IV fluids. You are being sent home with an antibiotic to take for the next 10 days. Please take those as prescribed. Please return to the ED if you experience worsening symptoms, persistent vomiting, fever, chills. Prescriptions: New cefpodoxime 200 mg tablet 200 mg PO Q12H 10 Days Qty: 20 0RF Rx Instructions: must administer with a meal/food No Action oxycodone-acetaminophen 5-325 mg tablet 1 tab PO Q6H PRN (Reason: pain) Qty: 20 0RF hydrocodone-acetaminophen 5-325 mg tablet 1 tab PO Q6H PRN (Reason: pain) Qty: 10 0RF ciprofloxacin HCl [Cipro] 500 mg tablet 500 mg PO BID Qty: 14 0RF ondansetron 4 mg tablet,disintegrating 4 mg PO Q8H PRN (Reason: nausea and vomiting) Qty: 10 0RF ciprofloxacin HCl [Cipro] 500 mg tablet 500 mg PO BID Qty: 10 0RF Referrals: Shania Mcleod PA-C [Primary Care Provider] - Stand Alone Forms: Patient Portal/API <Bere Sorto DO - Last Filed: 05/22/23 08:16> Cosign ED Attending Lalita Attestation: I was immediately available in the department for consultation. Documentation has been reviewed.
[2023-05-20 14:11] LABS: Add Manual Diff / Slide Review NO; Basophils Absolute Auto 100 /uL (0-100); Basophils Percent Auto 1.3 % (0-2); Eosinophils Absolute Auto 100 /uL (0-450); Eosinophils Percent Auto 2.1 % (2-4); Hematocrit 38.5 % (36-46); Hemoglobin 13.4 g/dL (12.0-16.0); Lymphocytes Absolute Auto 1500 /uL (1100-4500); Lymphocytes Percent Auto 27.6 % (25-40); Mean Corpuscular HGB Conc 34.9 % (30-36); Mean Corpuscular Hemoglobin 32.2 PG (26-34); Mean Corpuscular Volume 92.4 fL (80-100); Monocytes Absolute Auto 400 /uL (0-900); Monocytes Percent Auto 7.9 % (3-14); Neutrophils Absolute Auto 3200 /uL (1500-7000); Neutrophils Percent Auto 61.1 % (50-75); Platelet Count 153 X10^3/uL (150-400); Red Blood Cell Count 4.16 X10^6/uL (4.0-5.2); Red Cell Distribution Width 14.1 % (11.6-14.8); White Blood Cell Count 5.3 X10^3/uL (4.5-11.0)
[2023-05-20] MEDS: SODIUM CHLORIDE 0.9% 1,000 ML 1000 ML IV (14:14)
[2023-05-20] MEDS: KETOROLAC 30 MG/ML VIAL 15 MG IV (14:15)
[2023-05-20 14:20] LABS: Prothrombin Time 11.3 SECONDS (10.1-12.7)
[2023-05-20 14:23] LABS: PTT Partial Thromboplastin Tim 30 SECONDS (26-36)
[2023-05-20 14:25] LABS: Alanine Aminotransferase 29 IU/L (<35); Albumin 4.6 g/dL (3.5-5.0); Albumin Globulin Ratio 1.5 (1.0-2.8); Alkaline Phosphatase 86 U/L (38-126); Aspartate Aminotransferase 36 IU/L (14-36); BUN Creatinine Ratio 24.6 (6-22); Bilirubin Total 0.7 mg/dL (0.2-1.3); Blood Urea Nitrogen 16 mg/dL (7-17); Calcium 9.1 mg/dL (8.4-10.2); Carbon Dioxide 25 mmol/L (22-32); Chloride 105 mmol/L (98-107); Estimated Glomerular Filt Rate > 60 mL/min (>60); Globulin 3.1 g/dL (1.7-4.1); Glucose 189 mg/dL (70-100); HEMOLYSIS < 15 (0-50); Lipase 126 U/L (23-300); Potassium 4.2 mmol/L (3.4-5.1); Sodium 139 mmol/L (137-145); Total Protein 7.7 g/dL (6.3-8.2)
[2023-05-20] MEDS: cefTRIAXone 1,000 MG in SODIUM CHLORIDE 0.9% 100 ML 200 MG IV (16:46)
--- NOTE | 2023-05-20 19:22 | PC.NURSE ---
Pt's insurance would not cover Cefpodoxime. BONI Burgos changed rx to Bactrim DS 800/160mg BID for 10 days. That change was called into [facility] in [place]
== END 2023-05-20 17:55 | disposition home or self-care (01) ==
PROVIDERS: Emergency Provider Student in an Organized Health Care Education/Training Program; PCP Physician Assistant
DX: N39.0 Urinary tract infection, site not specified (principal)
CPT/HCPCS: 36415; 74177; 80053; 81003; 81015; 83690; 85025; 85610; 85730; 87086; 96361; 96365; 96375; 99284; J0696; J1885; Q9967

== ENCOUNTER 2024-07-29 11:04 | Emergency (ER) | payer BC, SELFPAY ==
[2024-07-29 11:09] VITALS: BP 179/100; PULSE 85; RESP 20; TEMP 36.9; O2SAT 98; BMI 34.7
--- NOTE | 2024-07-29 11:48 | ED.URI ---
HPI - URI/Sore Throat <Simon Tidwell PA-C - Last Filed: 07/29/24 12:10> General Chief Complaint: Upper Respiratory Symptoms Stated Complaint: COVID + Time Seen by Provider: 07/29/24 11:48 History of Present Illness HPI Narrative: This is a 53-year-old female presents emergency department due to worsening symptoms after being diagnosed with COVID 5 days ago. She states she test positive and has a continued cough as well as increased fatigue and weakness. She denies any chest pain, shortness of breath, abdominal pain, fevers, or any other concerning signs or symptoms. History of eosinophilic fasciitis, fibromyalgia, diabetes, diverticulitis, repeated UTIs. Takes methotrexate, meloxicam, Azathioprine, metformin. Related Data Previous Rx's Medication Instructions Recorded oxycodone-acetaminophen 5 mg-325 1 tab PO Q6H PRN pain #20 tabs 11/11/21 mg tablet ciprofloxacin HCl 500 mg tablet 500 mg PO BID #14 tabs 04/22/22 (Cipro) hydrocodone 5 mg-acetaminophen 325 1 tab PO Q6H PRN pain #10 tabs 04/22/22 mg tablet ondansetron 4 mg disintegrating 4 mg PO Q8H PRN nausea and 04/22/22 tablet vomiting #10 tabs ciprofloxacin HCl 500 mg tablet 500 mg PO BID #10 tabs 04/18/23 (Cipro) nirmatrelvir 300 mg (150 mg See Rx Instructions PO .COMPLEX 07/29/24 x2)-ritonavir 100 mg tablet,dose #30 ea pack (Paxlovid) Allergies Allergy/AdvReac Type Severity Reaction Status Date / Time Penicillins Allergy Hives Verified 05/20/23 11:50 Review of Systems <Simon Tidwell PA-C - Last Filed: 07/29/24 12:10> Review of Systems Narrative: GENERAL: Reports fatigue, weakness Denies chills, , malaise, fever, sweats. HEENT: Denies sinus pain, ear pain, sore throat, difficulty swallowing, dizziness. RESPIRATORY: Reports cough Denies dyspnea, , wheezing, hemoptysis, sputum. CARDIOVASCULAR: Denies chest pain, palpitations, orthopnea, edema, GASTROINTESTINAL: Denies nausea, vomiting, abdominal pain, diarrhea, constipation, melena. : Denies dysuria, frequency, incontinence, hematuria, urinary retention. MUSCULOSKELETAL: denies weakness, joint pain, or bony pain SKIN: Denies rash, skin lesions, or other NEUROLOGIC: Denies weakness, headache, numbness, change in speech, confusion, seizures, incoordination. PSYCHIATRIC: No concerning psychosocial issues. 12 point review of systems is negative except for those stated above Patient History <Simon Tidwell PA-C - Last Filed: 07/29/24 12:10> Medical History No significant past medical history Social History lives independently: Yes Smoking Status: Never smoker Smoking Status: Never smoker alcohol intake frequency: 0-2 drinks per day Substance Use Type: does not use Exam <Simon Tidwell PA-C - Last Filed: 07/29/24 12:10> Narrative Exam Narrative: GENERAL: Well-developed patient, in mild distress. HEAD: Atraumatic. Normocephalic. EYES: Pupils equal round and reactive. Extraocular motions intact. No scleral icterus. No injection or drainage. ENT: Nose without bleeding, purulent drainage. Throat without erythema, tonsillar hypertrophy or exudate. Airway patent. NECK: Trachea midline. Non tender EXTREMITIES: No edema or joint tenderness. NEURO: AOx3. SKIN: No rash or erythema of visible areas CARDIOVASCULAR: Regular rate and rhythm without murmurs, gallops, or rubs. RESPIRATORY: Clear to auscultation. Breath sounds equal bilaterally. No wheezes, rales, or rhonchi. GASTROINTESTINAL: Abdomen soft, non-tender, nondistended. BACK: Nontender without deformity or crepitance. No flank tenderness. Initial Vital Signs Initial Vital Signs: Vital Signs Temperature 98.4 F 07/29/24 11:09 Pulse Rate 85 07/29/24 11:09 Respiratory Rate 20 07/29/24 11:09 Blood Pressure 179/100 H 07/29/24 11:09 Pulse Oximetry 98 07/29/24 11:09 Oxygen Delivery Method Room Air 07/29/24 11:09 <Magaly Sebastian MD - Last Filed: 07/29/24 18:11> Initial Vital Signs Initial Vital Signs: Vital Signs Temperature 98.4 F 07/29/24 11:09 Pulse Rate 85 10/17/24 11:09 Respiratory Rate 20 07/29/24 11:09 Blood Pressure 179/100 H 07/29/24 11:09 Pulse Oximetry 98 07/29/24 11:09 Oxygen Delivery Method Room Air 07/29/24 11:09 Course <Simon Tidwell PA-C - Last Filed: 07/29/24 12:10> Vital Signs Vital signs: Vital Signs - 8 hr 07/29/24 11:09 07/29/24 12:17 Temperature 98.4 F Pulse Rate 85 95 H Respiratory Rate 20 12 Blood Pressure 179/100 H 144/97 H Pulse Oximetry 98 96 Oxygen Delivery Method Room Air Room Air <Magaly Sebastian MD - Last Filed: 07/29/24 18:11> Vital Signs Vital signs: Vital Signs - 8 hr 07/29/24 11:09 07/29/24 12:17 Temperature 98.4 F Pulse Rate 85 95 H Respiratory Rate 20 12 Blood Pressure 179/100 H 144/97 H Pulse Oximetry 98 96 Oxygen Delivery Method Room Air Room Air MDM - URI/Sore Throat <Simon Tidwell PA-C - Last Filed: 07/29/24 12:10> MDM Narrative Medical decision making narrative: ED course: This is a 53-year-old female presenting to the emergency department due to worsening symptoms after being diagnosed with COVID 5 days ago. Overall her exam is reassuring but patient was immunocompromised. Due to her immunocompromised state shared decision-making utilized and Paxlovid will be prescribed. Medication interaction tool used and no significant medication interactions. Most recent lab work showed no kidney or liver dysfunction. CC: Cough Complicating co-morbidities: History of eosinophilic fasciitis, fibromyalgia, diabetes, diverticulitis, repeated UTIs. Data collected from: Previous notes Medical records reviewed: Patient was last seen in the emergency department about a year ago due to a UTI. History of eosinophilic fasciitis, fibromyalgia, diabetes, diverticulitis, repeated UTIs. Patient given IV fluids, Rocephin IV, antibiotics p.o. prescription. Lab work from a year ago shows GFR over 60, creatinine within normal limits. Takes methotrexate, meloxicam, Azathioprine. Metformin Differential considered, but not limited to: Pneumonia, COVID, influenza Exam documented above, pertinent findings include: Exam reassuring, lung sounds clear Lab Test results independently reviewed as above. Pertinent findings: None obtained Imaging studies independently reviewed: None obtained Scores Used: None MIPS Elements: None Consultations: None Treatments: None Re-evaluations: None Discussion: Discussed plan with the patient was comfortable with the plan Diagnosis: COVID Disposition: see below, along with detailed discharge instructions that have been reviewed with patient as well as indications for ED re-evaluation and additional outpatient follow up Discharge Plan Departure Patient Disposition: Home Clinical Impression: COVID-19 Instructions: DI for COVID-19 (Suspected or Confirmed ) Activity Restrictions/Additional Instructions: Thank you for coming to the [facility] Emergency Department today. As we discussed due to your immunocompromise state Paxlovid we will be a beneficial medication for you take. Please take as prescribed. Otherwise COVID is a viral illness and should improve over time. You may also use [id number] cough and cold medication to help with your symptoms. Please return to the emergency department if you develop any chest pain, shortness of breath, high fevers, or any other concerning signs or symptoms. I hope you feel better soon. Please follow up with your primary care provider within a week if your symptoms continue. If you do not have a primary care provider please contact the [facility] Resource line at [phone]. They will ask some questions about your medical history and help you get set up with a provider in the community. Prescriptions: New Paxlovid 300 mg (150 mg x 2)-100 mg tablets,dose pack See Rx Instructions .ROUTE .COMPLEX Qty: 30 0RF Rx Instructions: take TWO 150 mg tablets of nirmatrelvir with ONE 100 mg tablet of ritonavir twice daily for 5 days No Action oxycodone-acetaminophen 5-325 mg tablet 1 tab PO Q6H PRN (Reason: pain) Qty: 20 0RF hydrocodone-acetaminophen 5-325 mg tablet 1 tab PO Q6H PRN (Reason: pain) Qty: 10 0RF ciprofloxacin HCl [Cipro] 500 mg tablet 500 mg PO BID Qty: 14 0RF ondansetron 4 mg tablet,disintegrating 4 mg PO Q8H PRN (Reason: nausea and vomiting) Qty: 10 0RF ciprofloxacin HCl [Cipro] 500 mg tablet 500 mg PO BID Qty: 10 0RF Referrals: Shania Mcleod PA-C [Primary Care Provider] - Stand Alone Forms: Patient Portal/API, Work Release Note ED Sign-out <Magaly Sebastian MD - Last Filed: 07/29/24 18:11> Cosign ED Attending Cosignature Attestation: I was immediately available in the department for consultation throughout this patient's visit. Magaly Sebastian MD
[2024-07-29 12:17] VITALS: BP 144/97; PULSE 95; RESP 12; O2SAT 96
== END 2024-07-29 12:18 | disposition home or self-care (01) ==
PROVIDERS: Emergency Provider Physician Assistant Medical; PCP Physician Assistant
DX: U07.1 COVID-19 (principal)
CPT/HCPCS: 99281